=== PATIENT | female | born 1935 | race Caucasian/White ===

== ENCOUNTER 2016-09-17 11:22 | Emergency (ER) | payer MEDICARE, OTHER | END 2016-09-17 13:41 | disposition home or self-care (01) | LOC: D.ER 11:22 | DX: Z91.81 History of falling (principal); Z86.73 Personal history of transient ischemic attack (TIA), and cerebral infarction without residual deficits; G47.33 Obstructive sleep apnea (adult) (pediatric) ==

== ENCOUNTER 2016-10-14 00:32 | Emergency (ER) | payer MEDICARE, OTHER ==
[2016-10-14 01:32] LABS: APPEARANCE CLEAR (CLEAR); BILIRUBIN NEGATIVE (NEGATIVE); COLOR YELLOW (YELLOW); GLUCOSE NEGATIVE (NEGATIVE); KETONE NEGATIVE (NEGATIVE); LEUKOCYTE ESTERASE NEGATIVE (NEGATIVE); NITRITE NEGATIVE (NEGATIVE); PROTEIN NEGATIVE (NEGATIVE); UROBILINOGEN NORMAL (NORMAL)
[2016-10-14 01:33] LABS: BASOPHILS 0.2 % (0-2); EOSINOPHILS 1.5 % (0-7); HEMATOCRIT 39.4 % (36.0-48.0); HEMOGLOBIN 12.2 g/dL (12-16); IMMATURE GRANULOCYTES 0.2 % (0-5); LYMPHOCYTES 28.6 % (15-50); MCH 25.4 pg (26.0-34.0); MCV 81.9 fL (80.0-100.0); MEAN PLATELET VOLUME 9.2 fL (7.4-10.4); MONOCYTES 6.5 % (2-11); PLATELET COUNT 248 10x3/uL (130-400); RBC 4.81 10x6/uL (4.00-5.40); RDW 15.8 % (11.5-14.5); WBC 9.1 10x3/uL (4.8-10.8)
[2016-10-14 01:39] LABS: UDS - AMPHET NEGATIVE QUAL (NEGATIVE); UDS - BARB NEGATIVE QUAL (NEGATIVE); UDS - BENZO NEGATIVE QUAL (NEGATIVE); UDS - COCAINE NEGATIVE QUAL (NEGATIVE); UDS - METH NEGATIVE QUAL (NEGATIVE); UDS - OPIATE NEGATIVE QUAL (NEGATIVE); UDS - PCP NEGATIVE QUAL (NEGATIVE); UDS - THC NEGATIVE QUAL (NEGATIVE)
[2016-10-14 01:58] LABS: APTT 35.9 SECONDS (22.8-39.4); INR 1.73 (0.85-1.17); PROTIME 20.2 SECONDS (11.6-15.0)
[2016-10-14 02:00] LABS: ALBUMIN 3.2 g/dL (3.4-5.0); ANION GAP 5.2 mmol/L (8-16); BILIRUBIN - TOTAL 0.24 mg/dL (0.2-1.3); CALCIUM 8.6 mg/dL (8.5-10.1); CARBON DIOXIDE 36.3 mmol/L (21.0-32.0); CREATININE - SERUM 0.9 mg/dL (0.6-1.3); POTASSIUM - SERUM 3.5 mmol/L (3.5-5.1); PROTEIN - SERUM 7.6 g/dL (6.4-8.2)
== END 2016-10-14 03:05 | disposition home or self-care (01) ==
LOC: D.ER 00:32
PROVIDERS: Emergency Medicine
DX: G40.909 Epilepsy, unspecified, not intractable, without status epilepticus (principal); R09.02 Hypoxemia; R55 Syncope and collapse; I44.0 Atrioventricular block, first degree; I44.60 Unspecified fascicular block

== ENCOUNTER 2016-12-04 16:59 | Inpatient (IN) | payer MEDICARE, OTHER ==
[2016-12-04 18:21] LABS: BASOPHILS 0.1 % (0-2); EOSINOPHILS 0.1 % (0-7); HEMATOCRIT 42.7 % (36.0-48.0); HEMOGLOBIN 13.1 g/dL (12-16); IMMATURE GRANULOCYTES 0.3 % (0-5); LYMPHOCYTES 9.3 % (15-50); MCHC 30.7 g/dL (31.0-37.0); MCV 81.3 fL (80.0-100.0); MEAN PLATELET VOLUME 9.4 fL (7.4-10.4); MONOCYTES 5.5 % (2-11); NEUTROPHILS 84.7 % (40-80); PLATELET COUNT 271 10x3/uL (130-400); RBC 5.25 10x6/uL (4.00-5.40); RDW 15.8 % (11.5-14.5); WBC 17.1 10x3/uL (4.8-10.8)
[2016-12-04 18:34] LABS: APTT 31.3 SECONDS (22.8-39.4); INR 1.56 (0.85-1.17); PROTIME 18.6 SECONDS (11.6-15.0)
[2016-12-04 18:46] LABS: ALBUMIN 3.3 g/dL (3.4-5.0); ANION GAP 13.5 mmol/L (8-16); BILIRUBIN - TOTAL 0.25 mg/dL (0.2-1.3); CALCIUM 8.7 mg/dL (8.5-10.1); CARBON DIOXIDE 27.1 mmol/L (21.0-32.0); CREATININE - SERUM 0.9 mg/dL (0.6-1.3); POTASSIUM - SERUM 3.6 mmol/L (3.5-5.1); PROTEIN - SERUM 7.5 g/dL (6.4-8.2)
[2016-12-05] VITALS: BP 162/80
--- NOTE | 2016-12-05 01:37 | NUR ---
REC'D TO ROOM 2225 FROM ER DEPT PER STRETCHER A 81 Y/O W/FE PER SERVICES DR. HEBERT WITH DX GI BLEED/DIVERTICULITIS. NKDA. IV PATENT LEFT FOOT ANTIBIOTIC HANGING OF LEVAQUAN WILL BE HANGING NS AFTERWARDS TO RUN AT 125CC'S/HR. SPOUSE AT BEDSIDE. 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 SR UP X2 CALL LIGHT WITHIN REACH. BED ALARM BED SET.
--- NOTE | 2016-12-05 02:30 | NUR ---
EYES CLOSED RESPIRATIONS WITH EASE AND UNLABORED. SPOUSE SLEEPING IN CHAIR AT BEDSIDE.O2 ON AT 2L/M PER NC.NO DISTRESS.
[2016-12-05 03:07] VITALS: BP 136/71; BMI 26.6
[2016-12-05] MEDS ORDERED: METOPROLOL TART50 MG PO (03:38)
[2016-12-05] MEDS ORDERED: HYZAAR 100-12.51 TAB PO (03:39)
[2016-12-05] MEDS ORDERED: LOSARTAN POTASS25 MG PO (03:41)
[2016-12-05] MEDS ORDERED: KEPPRA750 MG PO (03:42)
[2016-12-05] MEDS ORDERED: LEXAPRO10 MG PO (03:43)
[2016-12-05] MEDS ORDERED: PRAVACHOL80 MG PO (03:43)
[2016-12-05] MEDS ORDERED: BACLOFEN10 MG PO (03:44)
[2016-12-05] MEDS ORDERED: COUMADIN3 MG PO ×2 (03:46→15:35)
[2016-12-05] MEDS ORDERED: OMEPRAZOLE20 M1 PO (03:47)
[2016-12-05] MEDS ORDERED: K-TAB10 MEQ PO (03:47)
[2016-12-05] MEDS ORDERED: HYDROCHLOROTH12.5 M1 PO (03:48)
--- NOTE | 2016-12-05 04:00 | NUR ---
INC URINE BRIEF CHANGED.
--- NOTE | 2016-12-05 05:12 | NUR ---
REPOSITIONED IN BED SR UP X2 CALL LIGHT WITHIN REACH BED ALARM RESET.
[2016-12-05 05:42] LABS: BASOPHILS 0.2 % (0-2); EOSINOPHILS 0.8 % (0-7); HEMATOCRIT 36.7 % (36.0-48.0); HEMOGLOBIN 11.7 g/dL (12-16); IMMATURE GRANULOCYTES 0.2 % (0-5); LYMPHOCYTES 20.7 % (15-50); MCH 25.4 pg (26.0-34.0); MCHC 31.9 g/dL (31.0-37.0); MCV 79.6 fL (80.0-100.0); MEAN PLATELET VOLUME 9.4 fL (7.4-10.4); MONOCYTES 8.3 % (2-11); NEUTROPHILS 69.8 % (40-80); PLATELET COUNT 273 10x3/uL (130-400); RBC 4.61 10x6/uL (4.00-5.40); RDW 15.7 % (11.5-14.5)
[2016-12-05 05:45] LABS: CALCIUM 8.2 mg/dL (8.5-10.1); CARBON DIOXIDE 28.8 mmol/L (21.0-32.0); CHLORIDE - SERUM 102 mmol/L (98-107); CREATININE - SERUM 0.7 mg/dL (0.6-1.3); GLUCOSE 114 mg/dL (74-106); SODIUM 139 mmol/L (136-145); eGFR NON AFRICAN AMERICAN 85 mL/min (90-120)
[2016-12-05 05:46] LABS: INR 1.64 (0.85-1.17); PROTIME 19.4 SECONDS (11.6-15.0)
[2016-12-05 06:00] LABS: WBC 10.1 10x3/uL (4.8-10.8)
[2016-12-05 06:10] LABS: CALC OSMOLALITY 279 mosm/kg (275-300); UREA NITROGEN 16 mg/dL (7-18)
--- NOTE | 2016-12-05 07:00 | NUR ---
PT REC'D FROM PERLA FENG. RESTING IN BED WITH AT BEDSIDE. PT IS MOVING AROUND AND PULLING AT BLANKETS AN SHEETS. APHASIC, BUT CAN ANSWER YES AND NO BY SHAKING HER HEAD. NO COMPLAINTS OF PAIN. REGULAR HEART RATE AND RHYTHM. LUNG SOUNDS CLEAR AND EQAUL BILAT. BOWEL SOUNDS ACTIVE X4 QUADS. R EXTREMITES FLACCID. +2 PEDAL PULSES BILAT. SKIN TO LOWER EXTREMITIES DRY. PIV TO L ANKLE FREE OF REDNESS AND SWELLING. SCD TO RLE APPLIED. BED LOW, CALL LIGHT IN REACH, DENIES NEEDS. CPOC.
[2016-12-05 08:52] VITALS: BP 131/45
[2016-12-05 10:09] LABS: MAGNESIUM - SERUM 2.2 mg/dL (1.8-2.4); PHOSPHOROUS 2.6 mg/dL (2.5-4.9)
[2016-12-05 12:06] VITALS: BP 151/53
--- NOTE | 2016-12-05 12:45 | NUR ---
16 WELSH WATTERS CATHETER PLACED AT THIS TIME USING STERILE TECHNIQUE. PT TOLERATED WELL. IMMEDATE RETURN OF 350CC'S OF CLEAR YELLOW URINE. SPECIMEN OBTAINED AND SENT TO LAB FOR UA. REPOSITIONED UP IN BED. BED LOW, CALL LIGHT IN REACH, DENIES NEEDS. CPOC.
--- NOTE | 2016-12-05 13:07 | NUR ---
RESTING QUEITLY IN BED AT THIS TIME. DENIES NEEDS. SPEECH IS SLURRED. LEFT LUNGS WITH CRACKLES AND WHEEZES THROUGHOUT, OCCASSIONAL PRODUCTIVE COUGH NOTED. WATTERS PATNET WITH DARK YELLOW URINE.
[2016-12-05 13:22] LABS: APPEARANCE CLEAR (CLEAR); BILIRUBIN NEGATIVE (NEGATIVE); COLOR STRAW (YELLOW); GLUCOSE NEGATIVE (NEGATIVE); KETONE NEGATIVE (NEGATIVE); NITRITE NEGATIVE (NEGATIVE); PROTEIN NEGATIVE (NEGATIVE); UROBILINOGEN NORMAL (NORMAL)
[2016-12-05 13:24] LABS: BACTERIA FEW /hpf (NONE SEEN); EPITHELIAL CELLS 0-5 /hpf (0-5); WHITE CELLS - URINE 0-5 /hpf (0-5)
[2016-12-05 14:30] LABS: HEMOGLOBIN 11.2 g/dL (12-16)
[2016-12-05 14:38] VITALS: BMI 26.6
[2016-12-05 16:23] VITALS: BP 179/71
[2016-12-05 20:00] VITALS: BP 163/61
[2016-12-05 21:45] LABS: HEMATOCRIT 38.3 % (36.0-48.0); HEMOGLOBIN 11.8 g/dL (12-16)
[2016-12-06 04:00] VITALS: BP 141/65
[2016-12-06 06:32] LABS: BASOPHILS 0.2 % (0-2); EOSINOPHILS 0.9 % (0-7); HEMATOCRIT 37.7 % (36.0-48.0); HEMOGLOBIN 11.7 g/dL (12-16); IMMATURE GRANULOCYTES 0.2 % (0-5); LYMPHOCYTES 24.5 % (15-50); MCH 24.6 pg (26.0-34.0); MCV 79.4 fL (80.0-100.0); MEAN PLATELET VOLUME 8.9 fL (7.4-10.4); MONOCYTES 10.3 % (2-11); NEUTROPHILS 63.9 % (40-80); PLATELET COUNT 277 10x3/uL (130-400); RBC 4.75 10x6/uL (4.00-5.40); RDW 15.8 % (11.5-14.5); WBC 8.8 10x3/uL (4.8-10.8)
[2016-12-06 07:05] LABS: ALBUMIN 2.6 g/dL (3.4-5.0); ANION GAP 11.9 mmol/L (8-16); BILIRUBIN - TOTAL 0.44 mg/dL (0.2-1.3); CARBON DIOXIDE 27.5 mmol/L (21.0-32.0); CREATININE - SERUM 0.8 mg/dL (0.6-1.3); POTASSIUM - SERUM 3.4 mmol/L (3.5-5.1); PROTEIN - SERUM 6.5 g/dL (6.4-8.2)
--- NOTE | 2016-12-06 08:30 | NUR ---
ASSESSMENT COMPLETE. IV TO L FOOT PATENT. NS INFUSING AT 50 CC/HR VIA PUMP. RUE AND RLE FLACCID. ONLY ANSWERING YES AND NO QUESTIONS. WATTERS PATENT DRAINING YELLOW URINE. O2 3L NC IN USE. BED ALARM IN USE. AT BEDSIDE.
[2016-12-06 09:18] VITALS: BP 157/59
--- NOTE | 2016-12-06 12:00 | NUR ---
RESTING QUIETLY IN BED. FAMILY AT BEDSIDE. NO CHANGES NOTED AT PRESENT.
[2016-12-06 12:32] VITALS: BP 105/52
--- NOTE | 2016-12-06 17:00 | NUR ---
NO CHANGES NOTED AT PRESENT.
[2016-12-06 17:28] VITALS: BP 149/66
[2016-12-06 20:00] VITALS: BP 149/65
--- NOTE | 2016-12-06 20:00 | NUR ---
ASSESSMENT PER FLOWSHEET. RT SIDE FLACCID SPEECH APHASIC. INCOMPREHENSIVE WORDS NOTED.WATTERS TO BS DRAINAGE IV PATENT LEFT FOOT OF NS AT 50CC'S/HR. O21 AT 3L/M PER NC.BED ALARM BED ACTIVATED.
--- NOTE | 2016-12-06 21:00 | NUR ---
MEDS GIVEN PER APR. SR UP X22 CALL LIGHT WITHIN REACH SPOUSE AT BEDSIDE.
[2016-12-07] VITALS: BP 135/56; BP 148/59
--- NOTE | 2016-12-07 | NUR ---
EYES CLOSED RESPIRATIONS WITH EASE AND UNLABORED.
--- NOTE | 2016-12-07 03:00 | NUR ---
RESTING QUIETLY TURNED IN BED
[2016-12-07 04:00] VITALS: BP 135/56
[2016-12-07 05:17] LABS: BASOPHILS 0.2 % (0-2); EOSINOPHILS 1.1 % (0-7); HEMATOCRIT 33.4 % (36.0-48.0); HEMOGLOBIN 10.4 g/dL (12-16); IMMATURE GRANULOCYTES 0.1 % (0-5); MCH 24.7 pg (26.0-34.0); MCHC 31.1 g/dL (31.0-37.0); MCV 79.3 fL (80.0-100.0); MEAN PLATELET VOLUME 9.1 fL (7.4-10.4); MONOCYTES 8.1 % (2-11); NEUTROPHILS 72.5 % (40-80); PLATELET COUNT 268 10x3/uL (130-400); RBC 4.21 10x6/uL (4.00-5.40); RDW 15.8 % (11.5-14.5); WBC 8.7 10x3/uL (4.8-10.8)
[2016-12-07 05:33] LABS: ALBUMIN 2.5 g/dL (3.4-5.0); ANION GAP 9.9 mmol/L (8-16); BILIRUBIN - TOTAL 0.38 mg/dL (0.2-1.3); CALCIUM 8.3 mg/dL (8.5-10.1); CARBON DIOXIDE 26.4 mmol/L (21.0-32.0); CREATININE - SERUM 0.8 mg/dL (0.6-1.3); POTASSIUM - SERUM 3.3 mmol/L (3.5-5.1); PROTEIN - SERUM 6.1 g/dL (6.4-8.2)
--- NOTE | 2016-12-07 06:00 | NUR ---
MEDS PER MAR. NO CHANGES IN ASSESSMENT. K+ LEVEL 3.5.k= RIDER #[id number] HUNG PER Jo DUENAS.
--- NOTE | 2016-12-07 07:20 | NUR ---
RESTING QUIETLY IN BED. AT BEDSIDE.
--- NOTE | 2016-12-07 08:35 | NUR ---
ASSESSMENT COMPLETE. IV TO L FOOT PATENT. NS INFUSING AT 50 CC/HR VIA PUMP. R SIDE FLACCID TO UPPER AND LOWER EXTREMITY. WATTERS PATENT DRAINING YELLOW URINE. BED ALARM IN USE. O2 3L NC IN USE. AT BEDSIDE.
[2016-12-07 08:55] VITALS: BP 157/63
[2016-12-07 10:07] LABS: INR 1.58 (0.85-1.17); PROTIME 18.8 SECONDS (11.6-15.0)
--- NOTE | 2016-12-07 10:20 | NUR ---
STOOL FOR OCCULT BLOOD SENT TO LAB.
[2016-12-07 11:29] VITALS: BP 138/69
--- NOTE | 2016-12-07 13:09 | NUR ---
Patient Name: GAB ALEXANDRE Admission Status: ER Accout number: [id number] Admission Date: 12-04-2016 : 1935 Admission Diagnosis:MELENA Attending: MAHNAZ MARQUEZ Current LOS: 3 Anticipated DC Date: 12-08-2016 Planned Disposition: Home Primary Insurance: MEDICARE A & B Discharge Planning Comments: CM MET WITH PATIENTS SPOUSE (SUZAN) REGARDING D/C NEEDS AND PLANS. 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 SPOUSE STATED PATIENT IS TOTALLY DEPENDENT WITH HER CARE. PATIENT IS IN A WHEELCHAIR AND GOES TO PHYSICAL THERAPY AT A LOCAL GYM. PATIENT HAS A WHEELCHAIR, WALKER, BS COMMODE, AND OXYGEN AT HOME. PATIENT USES O2 AT NIGHT AND ALSO HAS A PORTABLE PER SPOUSE. SPOUSE REFUSED HOME HEALTH. CM WILL CONTINUE TO FOLLOW PATIENT WITH D/C NEEDS AND PLANS. PCP DR[facility] [place] [phone] SUZAN (SPOUSE) [phone] Trip Follower: Jane Adame Is the patient Alert and Oriented? No 0 * How many steps to enter\exit or inside your home? 0 0 * PCP DR. HEBERT 0 * Pharmacy [facility] 0 * Preadmission Environment Home with Family 0 * ADLs Total Dependent 0 * Equipment Bedside Commode Oxygen Walker Wheelchair 0 * Other Equipment PORTABLE O2 0 * List name and contact numbers for known caregivers / representatives who currently or will assist patient after discharge: SUZAN (SPOUSE) [phone] 0 * Community resources currently utilized None 0 * Additional services required to return to the preadmission environment? Yes 0 * Can the patient safely return to the preadmission environment? Yes 0 * Has this patient been hospitalized within the prior 30 days at any hospital? No 0 Grand Total: 0
[2016-12-07] MEDS ORDERED: FLORAJEN3 CAPS460 MG PO (14:05)
[2016-12-07] MEDS ORDERED: LEVAQUIN500 MG PO (14:06)
[2016-12-07] MEDS ORDERED: FLAGYL500 MG PO (14:06)
--- NOTE | 2016-12-07 14:30 | NUR ---
CM REASSESSMENT NOTE: PATIENT IS DISCHARGING HOME TODAY. SPOUSE REFUSED HOME HEALTH AND HAD NO OTHER NEEDS FOR DISCHARGE. SPOUSE IS DRIVING PATIENT HOME. IMM SERVED
--- NOTE | 2016-12-07 15:00 | NUR ---
WATTERS CATHETER DC'D. CATHETER TIP INTACT. PATIENT REMOVED OWN IV. CATHETER TIP INTACT. NO BLEEDING NOTED FROM IV INSERTION SITE. DISCHARGE TEACHING GIVEN TO PATIENT AND . VOICED UNDERSTANDING.
--- NOTE | 2016-12-07 15:25 | NUR ---
DC'D HOME WITH . ESCORTED TO VEHICLE BY STARCHER AND TENTER RANGE FEEDER WITH BELONGINGS VIA PERSONAL WHEELCHAIR.
== END 2016-12-07 15:25 | disposition home or self-care (01) | DRG 391 ==
LOC: D.ER 16:59 → D.MS 23:44
PROVIDERS: Emergency Medicine; Family Medicine; ADMIT Family Medicine
DX: K57.92 Diverticulitis of intestine, part unspecified, without perforation or abscess without bleeding (principal); R53.2 Functional quadriplegia; I69.351 Hemiplegia and hemiparesis following cerebral infarction affecting right dominant side; D64.89 Other specified anemias; G47.33 Obstructive sleep apnea (adult) (pediatric); I69.398 Other sequelae of cerebral infarction; R56.9 Unspecified convulsions

== ENCOUNTER 2016-12-15 16:43 | Observation (INO) | payer MEDICARE, OTHER ==
[~2016-12-15 16:43] MED LIST: BACLOFEN10 MG PO; COUMADIN3 MG PO; FLAGYL500 MG PO; FLORAJEN3 CAPS460 MG PO; HYDROCHLOROTH12.5 M1 PO; HYZAAR 100-12.51 TAB PO; K-TAB10 MEQ PO; KEPPRA750 MG PO; LEVAQUIN500 MG PO; LEXAPRO10 MG PO; LOSARTAN POTASS25 MG PO; METOPROLOL TART50 MG PO; OMEPRAZOLE20 M1 PO; PRAVACHOL80 MG PO
[2016-12-15 18:15] LABS: BASOPHILS 0.2 % (0-2); EOSINOPHILS 2.1 % (0-7); HEMATOCRIT 37.7 % (36.0-48.0); HEMOGLOBIN 11.7 g/dL (12-16); IMMATURE GRANULOCYTES 0.1 % (0-5); LYMPHOCYTES 20.4 % (15-50); MCH 24.7 pg (26.0-34.0); MCV 79.7 fL (80.0-100.0); MEAN PLATELET VOLUME 9.1 fL (7.4-10.4); MONOCYTES 8.5 % (2-11); NEUTROPHILS 68.7 % (40-80); PLATELET COUNT 303 10x3/uL (130-400); RBC 4.73 10x6/uL (4.00-5.40); WBC 8.1 10x3/uL (4.8-10.8)
[2016-12-15 18:41] LABS: INR 1.82 (0.85-1.17); PROTIME 21.1 SECONDS (11.6-15.0)
[2016-12-15 18:43] LABS: ANION GAP 9.1 mmol/L (8-16); BILIRUBIN - TOTAL 0.22 mg/dL (0.2-1.3); CALCIUM 8.8 mg/dL (8.5-10.1); CARBON DIOXIDE 31.4 mmol/L (21.0-32.0); CREATININE - SERUM 0.9 mg/dL (0.6-1.3); POTASSIUM - SERUM 3.5 mmol/L (3.5-5.1)
[2016-12-15 20:39] LABS: APPEARANCE HAZY (CLEAR); BILIRUBIN NEGATIVE (NEGATIVE); COLOR DK YELLOW (YELLOW); GLUCOSE NEGATIVE (NEGATIVE); KETONE NEGATIVE (NEGATIVE); NITRITE POSITIVE (NEGATIVE); PROTEIN TRACE mg/dL (NEGATIVE); SPECIFIC GRAVITY 1.015 (1.005-1.020); UROBILINOGEN NORMAL (NORMAL)
[2016-12-15 20:40] LABS: BACTERIA MODERATE /hpf (NONE SEEN); RED CELLS - URINE 0-5 /hpf (0-5)
[2016-12-15] MEDS ORDERED: BAYER CHEWABLE81 MG PO (21:09)
--- NOTE | 2016-12-15 21:15 | NUR ---
PT ARRIVED TO ROOM. AT BEDSIDE. PT FLACCID ON RIGHT SIDE AND NON VERBAL. PT WILL POINT AND SHAKE HEAD YES AND NO FOR ANSWERING. PT HAS A WHEELCHAIR FROM HOME SHE BROUGHT WITH. PT. DENIES ANY NEEDS AT THIS TIME. NO S/S OF DISTRESS. IV TO LEFT HAND IS S/L. CDI. WILL CPOC
[2016-12-16] VITALS: BP 145/48
--- NOTE | 2016-12-16 00:05 | NUR ---
PT HAD A SMALL BM, FORMED, SOFT. CLEANED PT, PT REPOSITONED. BED LOW AND CALL LIGHT IN REACH. WILL CPOC
[2016-12-16 01:02] VITALS: BP 149/53; BMI 31.0
[2016-12-16 04:00] VITALS: BP 153/63
--- NOTE | 2016-12-16 04:54 | NUR ---
PT HAD A SMALL BM. SOFT AND FORMED. PT REPOSITIONED AND CLEANED. PT DENIES ANY NEEDS. NO S/S OF DISTRESS. WILL CPOC
[2016-12-16 05:46] LABS: BASOPHILS 0.3 % (0-2); EOSINOPHILS 1.4 % (0-7); HEMATOCRIT 34.2 % (36.0-48.0); HEMOGLOBIN 10.8 g/dL (12-16); IMMATURE GRANULOCYTES 0.1 % (0-5); LYMPHOCYTES 26.2 % (15-50); MCH 24.7 pg (26.0-34.0); MCHC 31.6 g/dL (31.0-37.0); MCV 78.1 fL (80.0-100.0); MEAN PLATELET VOLUME 9.2 fL (7.4-10.4); MONOCYTES 9.6 % (2-11); NEUTROPHILS 62.4 % (40-80); PLATELET COUNT 308 10x3/uL (130-400); RBC 4.38 10x6/uL (4.00-5.40); RDW 15.9 % (11.5-14.5); WBC 7.3 10x3/uL (4.8-10.8)
[2016-12-16 06:00] LABS: ANION GAP 11.7 mmol/L (8-16); CALCIUM 8.7 mg/dL (8.5-10.1); CARBON DIOXIDE 28.6 mmol/L (21.0-32.0); CREATININE - SERUM 0.8 mg/dL (0.6-1.3); POTASSIUM - SERUM 3.3 mmol/L (3.5-5.1)
--- NOTE | 2016-12-16 07:46 | NUR ---
PT PLACED ON BED DEGROOT, DENIES ANY OTHER NEEDS WILL CONT TO MONITOR
[2016-12-16 08:00] VITALS: BP 158/80
[2016-12-16 12:20] VITALS: BP 161/78
[2016-12-16 13:22] VITALS: BMI 30.9
[2016-12-16] MEDS ORDERED: COLACE100 MG PO (14:44)
[2016-12-16] MEDS ORDERED: MIRALAX17 GM PO (14:44)
--- NOTE | 2016-12-16 16:01 | NUR ---
WENT OVER DC PAPERWORK WITH PT AND PT . VERBALIZE UNDERSTANDING DC PIV WITH CATH TIP INTACT. HELPED GET PT DRESSED AND INTO HER OWN WHEELCHAIR. PT WAS WHEELED OUT BY REFERENCE INVESTIGATOR. DRIVING HER HOME.
== END 2016-12-16 16:06 | disposition home or self-care (01) ==
LOC: D.ER 16:43 → OBSVTIME 19:49 → D.M2 19:49
PROVIDERS: Family Medicine; ADMIT Family Medicine
DX: K59.00 Constipation, unspecified (principal); Z86.73 Personal history of transient ischemic attack (TIA), and cerebral infarction without residual deficits; G47.33 Obstructive sleep apnea (adult) (pediatric); R53.2 Functional quadriplegia; R56.9 Unspecified convulsions

== ENCOUNTER 2018-02-21 13:58 | Inpatient (IN) | payer MEDICARE, OTHER ==
[~2018-02-21] VITALS: Ht 162.6 cm; Wt 68.0 kg
--- NOTE | ~2018-02-21 | EC ---
PATIENT:GAB ALEXANDRE DATE OF SERVICE: 02/21/18 SEX: F MEDICAL RECORD: [id number] DATE OF : 39 LOCATION:D.M2 D.210 AGE OF PATIENT: 82 ADMISSION DATE: 02/21/18 REFERRING PHYSICIAN: INTERPRETING PHYSICIAN: GERALD CORDERO MD ECHOCARDIOGRAM REPORT ECHO CHARGES 4 ECHO COMPLETE Date: 02/25/18 CLINICAL DIAGNOSIS: AFIB ECHOCARDIOGRAPHIC MEASUREMENTS (adult normal given) AC root (d.<3.7cm) 2.7 cm LV Septum d (<1.2 cm> 1.3 cm Valve Excursion 0.9 cm LV Septum (systole) 1.5 cm Left Atria (s.<4.0cm> 4.6 cm LVPW d(<1.2cm) 1.0 cm RV (d.<2.3cm) 3.2 cm LVPW (sytole) 1.2 cm LV diastole(<5.6CM) 5.3 cm MV E-F(>70mm/sec) cm LV systole 4.7 cm LVOT Diameter 1.5 cm MV exc.(>10mm) cm Est.ejection fraction (50-75%) % DOPPLER: LVIT cm/sec A 82 cm/sec E 72 cm/sec LA cm/sec RVSP 20.1 mmHg LVOT 93 cm/sec AOP1/2T m/s Asc. Ao 127 cm/sec RVOT 56 cm/sec RA cm/sec PA 88 cm/sec AV Gradient Peak 6.4 mmHg AV Mean 4.3 mmHg AV Area 1.3 cm MV Gradient Peak 1.8 mmHg MV Mean 0.9 mmHg MV Area cm COMMENTS: Director Of Student Affairs: [facility] Emt Driver: 1 Dr. Cordero TAPE# PACS Pericardial Effusion N DATE OF SERVICE: 02/25/2018 FINDINGS: 1. Left ventricular chamber size is within normal limits. Left ventricular systolic function is normal. Overall ejection fraction is estimated at 60%. 2. Left atrium is enlarged at 4.6 cm. Right atrium and right ventricular chamber sizes are within normal limit. 3. Valvular structures have normal structure and motion. 4. Doppler interrogation only reveals trace tricuspid regurgitation. No other valvular insufficiency or stenosis. Pulmonary systolic pressure is normal, ECHOCARDIOGRAM REPORT [id number] GAB ALEXANDRE estimated at 20 mmHg. 5. No evidence of pericardial effusion or left ventricular thrombus. TRANSINT:[id number] Voice Confirmation ID: [id number] DOCUMENT ID: [id number] GERALD CORDERO MD CC: [id number] DICTATION DATE: 02/25/18 140 MULTIFOCAL BUTTON INSPECTOR: 02/25/18 181 ADM IN [facility] [address] [place] [id number]
[~2018-02-21 13:58] MED LIST changes: +BAYER CHEWABLE81 MG PO; +COLACE100 MG PO; +MIRALAX17 GM PO
[2018-02-21 15:38] LABS: BASOPHILS 0.1 % (0-2); EOSINOPHILS 0.7 % (0-7); HEMATOCRIT 38.7 % (36.0-48.0); HEMOGLOBIN 12.3 g/dL (12-16); IMMATURE GRANULOCYTES 0.2 % (0-5); MCH 24.6 pg (26.0-34.0); MCHC 31.8 g/dL (31.0-37.0); MCV 77.2 fL (80.0-100.0); MEAN PLATELET VOLUME 9.3 fL (7.4-10.4); MONOCYTES 7.5 % (2-11); NEUTROPHILS 71.5 % (40-80); PLATELET COUNT 289 10x3/uL (130-400); RBC 5.01 10x6/uL (4.00-5.40); RDW 15.1 % (11.5-14.5); WBC 12.1 10x3/uL (4.8-10.8)
[2018-02-21 15:48] LABS: INR 2.7 (0.85-1.17); PROTIME 27.9 SECONDS (11.6-15.0)
[2018-02-21 16:00] LABS: ALBUMIN 3.1 g/dL (3.4-5.0); ANION GAP 12.1 mmol/L (8-16); BILIRUBIN - TOTAL 0.53 mg/dL (0.2-1.3); CALCIUM 9.4 mg/dL (8.5-10.1); CARBON DIOXIDE 29.9 mmol/L (21.0-32.0); CREATININE - SERUM 1.9 mg/dL (0.6-1.3); PROTEIN - SERUM 7.5 g/dL (6.4-8.2)
[2018-02-21 16:04] LABS: APPEARANCE CLEAR (CLEAR); COLOR YELLOW (YELLOW); GLUCOSE NEGATIVE (NEGATIVE); KETONE NEGATIVE (NEGATIVE); NITRITE NEGATIVE (NEGATIVE); PROTEIN NEGATIVE (NEGATIVE)
[2018-02-21 16:05] LABS: BILIRUBIN NEGATIVE (NEGATIVE); UROBILINOGEN NORMAL (NORMAL)
[2018-02-21 16:32] LABS: UDS - AMPHET NEGATIVE QUAL (NEGATIVE); UDS - BARB NEGATIVE QUAL (NEGATIVE); UDS - BENZO NEGATIVE QUAL (NEGATIVE); UDS - COCAINE NEGATIVE QUAL (NEGATIVE); UDS - OPIATE NEGATIVE QUAL (NEGATIVE); UDS - PCP NEGATIVE QUAL (NEGATIVE); UDS - THC NEGATIVE QUAL (NEGATIVE)
--- NOTE | 2018-02-21 18:53 | MORECARE ---
CASE MANAGEMENT DISCHARGE SUMMARY PATIENT: GAB ALEXANDRE UNIT: [id number] ADM DATE: 02/21/18 AGE: 82 : 37 SEX: F ROOM/BED: D.2104 AUTHOR: MUMTAZ HURST PHYSICIAN: REFERRING PHYSICIAN: XANDER LEWIS MD DATE OF SERVICE: 02/21/18 Discharge Plan Patient Name: GAB ALEXANDRE [facility] [facility] 1935 Planned Disposition: Home Anticipated Discharge Date: 02/23/18 Discharge Date: Expected LOS: 2 Initial Reviewer: [email or web address] Initial Review Date: 02/21/2018 Generated: 02/21/18 7:52 pm DCPIA - Discharge Planning Initial Assessment Updated by [email or web address]: Michelle Reeves on 02/21/18 6:49 pm * Is the patient Alert and Oriented? No * How many steps to enter\exit or inside your home? None * PCP Dr. Garcia * Pharmacy [facility] [place] Patient Name: GAB ALEXANDRE Page [phone] at 1853 All edits/amendments must be made on the electronic document DICTATION DATE: 02/21/181851 BEAD MAKER: SHEILA 02/21/181851 RPT#: [id number] DC DATE: STATUS: ADM IN [facility] [address] [place] [address] END OF REPORT
--- NOTE | 2018-02-21 19:00 | MORECARE ---
CASE MANAGEMENT DISCHARGE SUMMARY PATIENT: GAB ALEXANDRE UNIT: [id number] ADM DATE: 02/21/18 AGE: 82 : 37 SEX: F ROOM/BED: D.2104 AUTHOR: MUMTAZ HURST PHYSICIAN: REFERRING PHYSICIAN: XANDER LEWIS MD DATE OF SERVICE: 02/21/18 Discharge Plan Patient Name: GAB ALEXANDRE Facility: [facility]:[place] : 1935 Planned Disposition: Home Anticipated Discharge Date: 02/23/18 Discharge Date: Expected LOS: 2 Initial Reviewer: [email or web address] Initial Review Date: 02/21/2018 Generated: 02/21/18 8:00 pm DCPIA - Discharge Planning Initial Assessment Updated by [email or web address]: Michelle Reeves on 02/21/18 6:54 pm * Is the patient Alert and Oriented? No * How many steps to enter\exit or inside your home? None * PCP Dr. Garcia * Pharmacy [facility] in [place] * Preadmission Environment Home with Family * ADLs Total Dependent * Equipment Oxygen Wheelchair * List name and contact numbers for known caregivers / representatives who currently or will assist patient after discharge: Dmitry Post - spouse/[facility] - [phone] * Verbal permission to speak to the caregivers and representatives has been obtained from the patient. Yes * Community resources currently utilized Other * Please name any agencies selected above. OP therapy @ [facility] on Tuesdays and . * Additional services required to return to the preadmission environment? No * Can the patient safely return to the preadmission environment? Yes * Has this patient been hospitalized within the prior 30 days at any hospital? No Last DP export: 02/21/18 5:52 Patient Name: GAB ALEXANDRE Page 65397 at 1900 All edits/amendments must be made on the electronic document DICTATION DATE: 02/21/181899 HOSE SEAMER: SHEILA 02/21/181899 RPT#: [id number] DC DATE: STATUS: ADM IN [facility] [address] [place] [address] END OF REPORT
--- NOTE | 2018-02-21 19:08 | MORECARE ---
CASE MANAGEMENT DISCHARGE SUMMARY PATIENT: GAB ALEXANDRE UNIT: [id number] ADM DATE: 02/21/18 AGE: 82 : 37 SEX: F ROOM/BED: D.2101 AUTHOR: ARIS,DOC PHYSICIAN: REFERRING PHYSICIAN: XANDER LEWIS MD DATE OF SERVICE: 02/21/18 Discharge Plan Patient Name: GAB ALEXANDRE Facility: [facility]:[place] : 1935 Planned Disposition: Home Anticipated Discharge Date: 02/23/18 Discharge Date: Expected LOS: 2 Initial Reviewer: [email or web address] Initial Review Date: 02/21/2018 Generated: 02/21/18 8:08 pm DCP- Discharge Planning Updated by [email or web address]: Michelle Reeves on 02/21/18 6:[address] Patient Name: GAB ALEXANDRE Admission Status: ER Accout number: [id number] Admission Date: 02-21-2018 : 1935 Admission Diagnosis: Attending: XANDER LEWIS Current LOS: 1 Anticipated DC Date: 02-23-2018 Planned Disposition: Home Primary Insurance: MEDICARE A & B Discharge Planning Comments: CM met with patient and her to complete initial dc planning assessment. CM educated patient and spouse on the CM role and verbal consent given by patient to complete assessment. Patient lives at home with her who is her primary caregiver and POA. He reports the patient is totally dependent upon him. She has a wheelchair that she uses and wears O2 @ HS. He takes her to [facility] on Tuesdays and for therapy. It takes three of them to ambulate her but she can ambulate 80 feet. At discharge he said it depends on how the patient is doing as to what she will need. He hopes she can return home with him and will continue to do outpatient therapy. CM will continue to follow and will assist as needed with dc plans/needs. Time Study Analyst: Michelle Reeves RN, [facility] DCPIA - Discharge Planning Initial Assessment Updated by [email or web address]: Michelle Reeves on 02/21/18 6:54 pm * Is the patient Alert and Oriented? No * How many steps to enter\exit or inside your home? None * PCP Dr. Garcia * [place] [facility] [place] * Preadmission Environment Home with Family * ADLs Total Dependent * Equipment Oxygen Wheelchair * List name and contact numbers for known caregivers / representatives who currently or will assist patient after discharge: Dmitry Post - spouse/POA [phone] * Verbal permission to speak to the caregivers and representatives has been obtained from the patient. Yes * Community resources currently utilized Other * Please name any agencies selected above. OP therapy @ [facility] on Tuesdays and . * Additional services required to return to the preadmission environment? No * Can the patient safely return to the preadmission environment? Yes * Has this patient been hospitalized within the prior 30 days at any hospital? No Last DP export: 02/21/18 6:00 Patient Name: GAB ALEXANDRE Page 11078 at 1908 All edits/amendments must be made on the electronic document DICTATION DATE: 02/21/181907 DIGITAL FORENSICS INVESTIGATOR: SHEILA 02/21/181907 RPT#: [id number] DC DATE: STATUS: ADM IN [facility] [address] [place] [address] END OF REPORT
[2018-02-21 20:00] VITALS: BP 148/67
[2018-02-22] VITALS (7 sets, daily range): BP systolic 124–149; BP diastolic 50–67; Ht 162.6 cm; Wt 68.0 kg
[2018-02-22 04:22] LABS: BASOPHILS 0.2 % (0-2); EOSINOPHILS 0.5 % (0-7); HEMOGLOBIN 11.3 g/dL (12-16); IMMATURE GRANULOCYTES 0.1 % (0-5); LYMPHOCYTES 24.7 % (15-50); MCH 24.5 pg (26.0-34.0); MCHC 31.4 g/dL (31.0-37.0); MCV 78.1 fL (80.0-100.0); MEAN PLATELET VOLUME 9.5 fL (7.4-10.4); MONOCYTES 11.2 % (2-11); NEUTROPHILS 63.3 % (40-80); PLATELET COUNT 273 10x3/uL (130-400); RBC 4.61 10x6/uL (4.00-5.40); RDW 15.4 % (11.5-14.5); WBC 9.6 10x3/uL (4.8-10.8)
[2018-02-22 04:33] LABS: INR 2.63 (0.85-1.17); PROTIME 27.3 SECONDS (11.6-15.0)
[2018-02-22 04:52] LABS: ALBUMIN 2.7 g/dL (3.4-5.0); ANION GAP 11.8 mmol/L (8-16); BILIRUBIN - TOTAL 0.45 mg/dL (0.2-1.3); CALCIUM 8.9 mg/dL (8.5-10.1); CARBON DIOXIDE 25.4 mmol/L (21.0-32.0); POTASSIUM - SERUM 3.2 mmol/L (3.5-5.1); PROTEIN - SERUM 6.5 g/dL (6.4-8.2)
[2018-02-22 04:53] LABS: CREATININE - SERUM 1.3 mg/dL (0.6-1.3)
[2018-02-23 04:00] VITALS: BP 138/56
[2018-02-23 05:38] LABS: BASOPHILS 0.1 % (0-2); EOSINOPHILS 1.2 % (0-7); HEMATOCRIT 34.5 % (36.0-48.0); IMMATURE GRANULOCYTES 0.2 % (0-5); LYMPHOCYTES 28.5 % (15-50); MCH 25.1 pg (26.0-34.0); MCHC 31.9 g/dL (31.0-37.0); MCV 78.8 fL (80.0-100.0); MEAN PLATELET VOLUME 9.3 fL (7.4-10.4); MONOCYTES 9.4 % (2-11); NEUTROPHILS 60.6 % (40-80); PLATELET COUNT 280 10x3/uL (130-400); RBC 4.38 10x6/uL (4.00-5.40); RDW 15.4 % (11.5-14.5); WBC 8.7 10x3/uL (4.8-10.8)
[2018-02-23 05:42] LABS: ALBUMIN 2.4 g/dL (3.4-5.0); ALKALINE PHOSPHATASE 67 U/L (46-116); ALT (SGPT) 17 U/L (10-68); BILIRUBIN - TOTAL 0.48 mg/dL (0.2-1.3); CALC OSMOLALITY 281 mosm/kg (275-300); CALCIUM 8.6 mg/dL (8.5-10.1); CARBON DIOXIDE 25.8 mmol/L (21.0-32.0); CHLORIDE - SERUM 107 mmol/L (98-107); CREATININE - SERUM 0.7 mg/dL (0.6-1.3); GLUCOSE 114 mg/dL (74-106); SODIUM 139 mmol/L (136-145); UREA NITROGEN 22 mg/dL (7-18); eGFR NON AFRICAN AMERICAN 85 mL/min (90-120)
[2018-02-23 05:43] LABS: INR 1.92 (0.85-1.17); POTASSIUM - SERUM 2.9 mmol/L (3.5-5.1); PROTIME 21.3 SECONDS (11.6-15.0)
[2018-02-23 10:19] VITALS: BP 144/80
[2018-02-23 17:31] VITALS: BP 130/75
[2018-02-23 21:08] VITALS: BP 139/77
[2018-02-24] VITALS (8 sets, daily range): BP systolic 120–146; BP diastolic 55–78
[2018-02-24 05:27] LABS: BASOPHILS 0.2 % (0-2); EOSINOPHILS 2.1 % (0-7); HEMATOCRIT 36.7 % (36.0-48.0); HEMOGLOBIN 11.5 g/dL (12-16); IMMATURE GRANULOCYTES 0.2 % (0-5); LYMPHOCYTES 32.2 % (15-50); MCH 24.7 pg (26.0-34.0); MCHC 31.3 g/dL (31.0-37.0); MCV 78.9 fL (80.0-100.0); MEAN PLATELET VOLUME 9.3 fL (7.4-10.4); MONOCYTES 9.9 % (2-11); NEUTROPHILS 55.4 % (40-80); PLATELET COUNT 281 10x3/uL (130-400); RBC 4.65 10x6/uL (4.00-5.40); RDW 16.1 % (11.5-14.5); WBC 9.5 10x3/uL (4.8-10.8)
[2018-02-24 05:44] LABS: INR 1.43 (0.85-1.17); PROTIME 16.9 SECONDS (11.6-15.0)
[2018-02-24 05:50] LABS: ALBUMIN 2.6 g/dL (3.4-5.0); ANION GAP 12.9 mmol/L (8-16); BILIRUBIN - TOTAL 0.47 mg/dL (0.2-1.3); CALCIUM 8.7 mg/dL (8.5-10.1); CARBON DIOXIDE 26.5 mmol/L (21.0-32.0); CREATININE - SERUM 0.8 mg/dL (0.6-1.3); POTASSIUM - SERUM 3.4 mmol/L (3.5-5.1); PROTEIN - SERUM 6.3 g/dL (6.4-8.2)
[2018-02-25 03:45] VITALS: BP 144/47
[2018-02-25 05:59] LABS: INR 1.26 (0.85-1.17); PROTIME 15.3 SECONDS (11.6-15.0)
[2018-02-25 06:01] LABS: ALBUMIN 2.5 g/dL (3.4-5.0); ANION GAP 13.7 mmol/L (8-16); BASOPHILS 0.2 % (0-2); BILIRUBIN - TOTAL 0.5 mg/dL (0.2-1.3); CALCIUM 8.4 mg/dL (8.5-10.1); CARBON DIOXIDE 25.7 mmol/L (21.0-32.0); CREATININE - SERUM 0.9 mg/dL (0.6-1.3); EOSINOPHILS 2.4 % (0-7); HEMATOCRIT 36.1 % (36.0-48.0); HEMOGLOBIN 11.2 g/dL (12-16); IMMATURE GRANULOCYTES 0.2 % (0-5); LYMPHOCYTES 28.8 % (15-50); MCH 24.4 pg (26.0-34.0); MCV 78.6 fL (80.0-100.0); MEAN PLATELET VOLUME 9.6 fL (7.4-10.4); MONOCYTES 7.6 % (2-11); NEUTROPHILS 60.8 % (40-80); PLATELET COUNT 282 10x3/uL (130-400); POTASSIUM - SERUM 3.4 mmol/L (3.5-5.1); PROTEIN - SERUM 6.4 g/dL (6.4-8.2); RBC 4.59 10x6/uL (4.00-5.40); RDW 16.2 % (11.5-14.5); WBC 9.2 10x3/uL (4.8-10.8)
[2018-02-25 08:13] VITALS: BP 149/81
[2018-02-25 11:23] VITALS: BP 103/48
--- NOTE | 2018-02-25 13:37 | MORECARE ---
CASE MANAGEMENT DISCHARGE SUMMARY PATIENT: GAB ALEXANDRE UNIT: [id number] ADM DATE: 02/21/18 AGE: 82 : 37 SEX: F ROOM/BED: D.2102 AUTHOR: ARIS,DOC PHYSICIAN: REFERRING PHYSICIAN: XANDER LEWIS MD DATE OF SERVICE: 02/25/18 Discharge Plan Patient Name: GAB ALEXANDRE Facility: [facility]:[place] : 1935 Planned Disposition: Home Anticipated Discharge Date: 02/25/18 Discharge Date: Expected LOS: 4 Initial Reviewer: [email or web address] Initial Review Date: 02/21/2018 Generated: 02/25/18 2:36 pm DCP- Discharge Planning Updated by [email or web address]: Michelle Reeves on 02/21/18 6:[address] Patient Name: GAB ALEXANDRE Admission Status: ER Accout number: [id number] Admission Date: 02-21-2018 : 1935 Admission Diagnosis: Attending: XANDER LEWIS Current LOS: 1 Anticipated DC Date: 02-23-2018 Planned Disposition: Home Primary Insurance: MEDICARE A & B Discharge Planning Comments: CM met with patient and her to complete initial dc planning assessment. CM educated patient and spouse on the CM role and verbal consent given by patient to complete assessment. Patient lives at home with her who is her primary caregiver and POA. He reports the patient is totally dependent upon him. She has a wheelchair that she uses and wears O2 @ HS. He takes her to Sports Medicine on Tuesdays and for therapy. It takes three of them to ambulate her but she can ambulate 80 feet. At discharge he said it depends on how the patient is doing as to what she will need. He hopes she can return home with him and will continue to do outpatient therapy. CM will continue to follow and will assist as needed with dc plans/needs. Africana Studies Professor: Michelle Reeves RN, [facility] DCPIA - Discharge Planning Initial Assessment Updated by [id number]: Michelle Reeves on 02/21/18 6:54 pm * Is the patient Alert and Oriented? No * How many steps to enter\exit or inside your home? None * PCP Dr. Garcia * Pharmacy [facility] [place] * Preadmission Environment Home with Family * ADLs Total Dependent * Equipment Oxygen Wheelchair * List name and contact numbers for known caregivers / representatives who currently or will assist patient after discharge: Suzan Post - spouse/[facility] - [phone] * Verbal permission to speak to the caregivers and representatives has been obtained from the patient. Yes * Community resources currently utilized Other * Please name any agencies selected above. OP therapy @ [facility] on Tuesdays and . * Additional services required to return to the preadmission environment? No * Can the patient safely return to the preadmission environment? Yes * Has this patient been hospitalized within the prior 30 days at any hospital? No Coverage Notice Reviewer: [id number] Burton Tamayo Notice Issued Date-Time: 02/25/2018 13:15 Notice Type: IM Discharge Notice Notice Delivered To: Family Member Relationship to Patient: Spouse Registered Nurse Surgical Services Name: SUZAN ALEXANDRE Delivery Method: HAND - Hand Delivered Beth Days: Prior Verbal Notification: Recipient Understood Notice: Yes Recipient Signature: Yes Med Rec Note Co-signed by Attending: Coverage Notice Comment: Last DP export: 02/21/18 6:08 Patient Name: GAB ALEXANDRE Page [phone] at 1337 All edits/amendments must be made on the electronic document DICTATION DATE: 02/25/181335 RELIEF COOK: SHEILA 02/25/181335 RPT#: [id number] DC DATE: STATUS: ADM IN [facility] [address] [place] [address] END OF REPORT
--- NOTE | 2018-02-25 13:52 | MORECARE ---
CASE MANAGEMENT DISCHARGE SUMMARY PATIENT: GAB ALEXANDRE UNIT: [id number] ADM DATE: 02/21/18 AGE: 82 : 37 SEX: F ROOM/BED: D.2102 AUTHOR: ARIS,DOC PHYSICIAN: REFERRING PHYSICIAN: XANDER LEWIS MD DATE OF SERVICE: 02/25/18 Discharge Plan Patient Name: GAB ALEXANDRE Facility: [facility]:[place] : 1935 Planned Disposition: Home Anticipated Discharge Date: 02/25/18 Discharge Date: Expected LOS: 4 Initial Reviewer: [email or web address] Initial Review Date: 02/21/2018 Generated: 02/25/18 2:52 pm Comments DCP- Discharge Planning Updated by [email or web address]: Nicola Fontenot on 02/25/18 12:[address] Patient Name: GAB ALEXANDRE Encounter No: [id number] : 1935 Primary Insurance: MEDICARE A & B Anticipated DC Date: 02-25-2018 Planned Disposition: Home DCP follow-up note: CM RECEIVED ORDER FOR INPATIENT REHAB PRESCREENING. CM SPOKE TO PT AND SPOUSE IN ROOM. PT IS LIMITED TO YES AND NO ANSWERS. PT'S SPOUSE REPORTS SINCE PT'S STROKE 6 YEARS AGO, HE IS HER VOICE AND TAKES CARE OF PT AT HOME. CM DISCUSSED AVAILABILTY OF INPATIENT AND SENIOR LIVING REHAB SERVICES. PT'S SPOUSE DECLINES BOTH. SPOUSE REPORTS THAT HE PICKS UP PT AND TRANSFERS PT FROM BED TO WHEELCHAIR TO TOILET AND BACK TO CHAIR UP TO 30 TIMES PER DAY. SPOUSE REPORTS PT TO BE AT HER PRIOR LEVEL OF FUCTIONING PRIOR TO GETTING SICK THIS TIME. CM DISCUSSSED AVAILABILITY OF HOME HEALTH AND MEDICAL EQUIPMENT. PT DECLINES HOME HEALTH REPORTING HE ALREADY TAKES PT TO THE [facility] IN [place] TWICE PER WEEK AND SHE GETS MAXIMUM AMOUNT OF PHYSICAL THERAPY THAT MEDICARE WILL PAY FOR. SPOUSE REPORTS HE HAS EVERYTHING THAT HE NEEDS TO CARE FOR HIS AT HOME AND WILL CONTINUE TO DO SO. CM INFORMED SPOUSE THAT HIS DAUGHTER CALLED AND WAS CONCERNED ABOUT HIM DRIVING. SPOUSE STATES THAT IS HIS STEP DAUGHTER AND HE IS OK TO DRIVE SINCE GETTING HIS DIABETES MEDICATIONS FROM THE PHARMACY AND PLANS TO DRIVE PT HOME AT DISCHARGE. IMPORTANT MESSAGE FROM MEDICARE PROVIDED AND EXPLAINED. PT'S SPOUSE DECLINED INPATIENT AND SENIOR LIVING REHAB WELL HOME HEALTH SERVICES. SPOUSE PLANS TO TAKE PT HOME AND CONTINUE OUTPATIENT THERAPY AT [facility] IN [place]. SPOUSE REPORTS ABILITY TO CARE FOR PT AND THAT SHE IS ALEADY AT HER PRIOR LEVEL OF FUNCTIONING. SPOUSE TO TRANSPORT HOME AT DISCHARGE. NICOLA FONTENOT, CASE MANAGEMENT DCP- Discharge Planning Updated by [id number]: Michelle Reeves on 02/21/18 6:[address] Patient Name: GAB ALEXANDRE Admission Status: ER Accout number: [id number] Admission Date: 02-21-2018 : 1935 Admission Diagnosis: Attending: XANDER LEWIS Current LOS: 1 Anticipated DC Date: 02-23-2018 Planned Disposition: Home Primary Insurance: MEDICARE A & B Discharge Planning Comments: CM met with patient and her to complete initial dc planning assessment. CM educated patient and spouse on the CM role and verbal consent given by patient to complete assessment. Patient lives at home with her who is her primary caregiver and POA. He reports the patient is totally dependent upon him. She has a wheelchair that she uses and wears O2 @ HS. He takes her to [facility] on Tuesdays and for therapy. It takes three of them to ambulate her but she can ambulate 80 feet. At discharge he said it depends on how the patient is doing as to what she will need. He hopes she can return home with him and will continue to do outpatient therapy. CM will continue to follow and will assist as needed with dc plans/needs. Monument Letterer: Michelle Reeves RN, [facility] DCPIA - Discharge Planning Initial Assessment Updated by [email or web address]: Michelle Reeves on 02/21/18 6:54 pm * Is the patient Alert and Oriented? No * How many steps to enter\exit or inside your home? None * PCP Dr. Garcia * Pharmacy [facility] in [place] * Preadmission Environment Home with Family * ADLs Total Dependent * Equipment Oxygen Wheelchair * List name and contact numbers for known caregivers / representatives who currently or will assist patient after discharge: Dmitry Post - spouse/POA - [phone] * Verbal permission to speak to the caregivers and representatives has been obtained from the patient. Yes * Community resources currently utilized Other * Please name any agencies selected above. OP therapy @ [facility] on Tuesdays and . * Additional services required to return to the preadmission environment? No * Can the patient safely return to the preadmission environment? Yes * Has this patient been hospitalized within the prior 30 days at any hospital? No Coverage Notice Reviewer: [id number] Burton Fontenot Notice Issued Date-Time: 02/25/2018 13:15 Notice Type: IM Discharge Notice Notice Delivered To: Family Member Relationship to Patient: Spouse Waste Cotton Cleaner Name: DMITRY ALEXANDRE Delivery Method: HAND - Hand Delivered Beth Days: Prior Verbal Notification: Recipient Understood Notice: Yes Recipient Signature: Yes Med Rec Note Co-signed by Attending: Coverage Notice Comment: Last DP export: 02/25/18 12:37 Patient Name: GAB ALEXANDRE Page [phone] at 1352 All edits/amendments must be made on the electronic document DICTATION DATE: 02/25/18 1352 WEB UI DEVELOPER: SHEILA 02/25/18 1352 RPT#: [id number] [place] DATE: STATUS: ADM IN [facility] [address] [place] [address] END OF REPORT
--- NOTE | 2018-02-25 14:36 | CN ---
PATIENT NAME:GAB ALEXANDRE MEDICAL RECORD: [id number] : 39 LOCATION:D. D.2104 ADMIT DATE: 02/21/18 ACCOUNT: [id number] CONSULTING PHYSICIAN: GERALD RACHEL MD REFERRING PHYSICIAN: XANDER LEWIS MD DATE OF CONSULTATION: 02/24/2018 DIAGNOSES: 1. Paroxysmal atrial fibrillation. 2. Hypertension. 3. Hyperlipidemia. 4. Shortness of breath, dyspnea on exertion. HISTORY: Mrs. Alexandre presents with generalized lethargy and mental status changes. This is resolving with antibiotic therapy; however, she has paroxysms of atrial fibrillation. She has no cardiac history. She was placed on metoprolol. Her rate is controlled in the 90s; however, she is still in and out of atrial fibrillation. She is on Coumadin as well. PHYSICAL EXAMINATION: GENERAL APPEARANCE: Well-nourished, well-developed, appears stated age. Level of distress, comfortable. PSYCHIATRIC: Mental status, alert, normal affect. Orientation, oriented to time, place and person. EYES: Lids and conjunctiva, noninjected. No discharge, no pallor. ENT: Lips, teeth, gums, normal dentition. Oropharynx, no cyanosis, no pallor. NECK: Carotid arteries, bilateral normal upstroke, no bruits, no thrills. JUGULAR VEINS: No jugular venous pressure or distention. CERVICAL LYMPH NODES: Nontender, nonenlarged. THYROID: Not enlarged. Nontender. No nodules. LUNGS: Respiratory effort, unlabored. CHEST: Normal curvature. No thoracic deformity. No chest wall tenderness. Percussion, resonant. Auscultation, clear. No wheezes, no rales, no rhonchi. CARDIOVASCULAR: Precordial exam, nondisplaced. No heaves or pericardial thrills. Rate and rhythm, regular. Heart sounds, normal S1, normal S2. No S3, no gallop, no rub. Systolic murmur, not heard. Diastolic murmur, not heard. EXTREMITIES: No cyanosis, no edema. Peripheral pulses, full and equal in all extremities, except as noted. No bruits appreciated. ABDOMEN: Soft, nondistended. Normal aorta. No bruit. Nontender. No masses. Liver, nontender, no hepatomegaly. Spleen, nontender, no splenomegaly. MUSCULOSKELETAL: No joint tenderness. No joint swelling. No erythema. NEUROLOGICAL: Normal gait, normal strength, normal tone. SKIN: Warm and dry. OVERALL IMPRESSION: Paroxysmal atrial fibrillation. We will discontinue the metoprolol and put her on sotalol. Get an echocardiogram. TRANSINT:[id number] Voice Confirmation ID: [id number] DOCUMENT ID: [id number] CONSULT REPORT [id number] GAB ALEXANDRE, GERALD ZEPEDA at 1436 CC: [id number] DICTATION DATE: 02/24/18 1236 EMS DIRECTOR: 02/24/18 [address] [facility] [address] [id number]
--- NOTE | 2018-02-25 15:15 | MORECARE ---
CASE MANAGEMENT DISCHARGE SUMMARY PATIENT: GAB ALEXANDRE UNIT: [id number] ADM DATE: 02/21/18 AGE: 82 : 37 SEX: F ROOM/BED: D.2104 AUTHOR: ARIS,DOC PHYSICIAN: REFERRING PHYSICIAN: XANDER LEWIS MD DATE OF SERVICE: 02/25/18 Discharge Plan Patient Name: GAB ALEXANDRE [facility] [facility] 1935 Planned Disposition: Inpatient Rehab Anticipated Discharge Date: 02/25/18 Discharge Date: Expected LOS: 4 Initial Reviewer: [email or web address] Initial Review Date: 02/21/2018 Generated: 02/25/18 4:15 pm Comments DCP- Discharge Planning Updated by [email or web address]: Nicola Fontenot on 02/25/18 2:[address] Patient Name: GAB ALEXANDRE Encounter No: [id number] : 1935 Primary Insurance: MEDICARE A & B Anticipated DC Date: 02-25-2018 Planned Disposition: Inpatient Rehab External Planned Provider: [facility] INPATIENT REHAB DCP follow-up note: CM WAS CALLED TO PT'S ROOM BY PT'S SPOUSE. PT'S SPOUSE REPORTS HE HAS TALKED TO A PERSONAL FRIEND AND HE WOULD LIKE PT TO BE CONSIDERED FOR INPATIENT REHAB AT [facility]. HE IS AWARE THAT PT WILL NEED TO PARTICIPATE IN THRE HOURS OF PROGRESSIVE THERAPY PER DAY AND STATES THAT PT IS ABLE TO WALK AND PARTICIPATE IN THREE HOURS OF THERAPY PER DAY; HE STATES THAT PT WAS WALKING 80 FEET TWICE PER WEEK AT THE [facility]PATIENT [facility] IN [place]. PT'S SPOUSE IS ALSO AWARE THAT HE IS NOT GOING TO BE ABLE TO STAY WITH THE PT IN THE INPATIENT REHAB UNIT. CM CALLED AND NOTIFIED YESSY WHO INFORMED CM THAT INPATIENT REHAB WILL WATCH PT'S PROGRESSION FOR INPATIENT REHAB CONSIDERATION. CM WAITING COMPLETION OF INPATIENT REHAB PRESCREEN BY [facility]. PT'S SPOUSE UNDERSTANDS THAT PT WILL NEED TO DEMONSTRATE ABILITY TO AMBULATE AND ABILITY TO TOLERATE THREE HOURS OF PROGRESSIVE THERAPY PER DAY. Nicola Fontenot CASE MANAGEMENT DCP- Discharge Planning Updated by [email or web address]: Nicola Fontenot on 02/25/18 12:[address] Patient Name: GAB ALEXANDRE Encounter No: [id number] : 1935 Primary Insurance: MEDICARE A & B Anticipated DC Date: 02-25-2018 Planned Disposition: Home DCP follow-up note: CM RECEIVED ORDER FOR INPATIENT REHAB PRESCREENING. CM SPOKE TO PT AND SPOUSE IN ROOM. PT IS LIMITED TO YES AND NO ANSWERS. PT'S SPOUSE REPORTS SINCE PT'S STROKE 6 YEARS AGO, HE IS HER VOICE AND TAKES CARE OF PT AT HOME. CM DISCUSSED AVAILABILTY OF INPATIENT AND [facility] REHAB SERVICES. PT'S SPOUSE DECLINES BOTH. SPOUSE REPORTS THAT HE PICKS UP PT AND TRANSFERS PT FROM BED TO WHEELCHAIR TO TOILET AND BACK TO CHAIR UP TO 30 TIMES PER DAY. SPOUSE REPORTS PT TO BE AT HER PRIOR LEVEL OF FUCTIONING PRIOR TO GETTING SICK THIS TIME. CM DISCUSSSED AVAILABILITY OF HOME HEALTH AND MEDICAL EQUIPMENT. PT DECLINES HOME HEALTH REPORTING HE ALREADY TAKES PT TO THE [facility] IN [place] TWICE PER WEEK AND SHE GETS MAXIMUM AMOUNT OF PHYSICAL THERAPY THAT MEDICARE WILL PAY FOR. SPOUSE REPORTS HE HAS EVERYTHING THAT HE NEEDS TO CARE FOR HIS AT HOME AND WILL CONTINUE TO DO SO. CM INFORMED SPOUSE THAT HIS DAUGHTER CALLED AND WAS CONCERNED ABOUT HIM DRIVING. SPOUSE STATES THAT IS HIS STEP DAUGHTER AND HE IS OK TO DRIVE SINCE GETTING HIS DIABETES MEDICATIONS FROM THE PHARMACY AND PLANS TO DRIVE PT HOME AT DISCHARGE. IMPORTANT MESSAGE FROM MEDICARE PROVIDED AND EXPLAINED. PT'S SPOUSE DECLINED INPATIENT AND [facility] RE[facility]. SPOUSE PLANS TO TAKE PT HOME AND CONTINUE OUTPATIENT THERAPY AT [facility] IN [place]. SPOUSE REPORTS ABILITY TO CARE FOR PT AND THAT SHE IS ALEADY AT HER PRIOR LEVEL OF FUNCTIONING. SPOUSE TO TRANSPORT HOME AT DISCHARGE. NICOLA FONTENOT, CASE MANAGEMENT DCP- Discharge Planning Updated by [id number]: Michelle Reeves on 02/21/18 6:[address] Patient Name: GAB ALEXANDRE Admission Status: ER Accout number: [id number] Admission Date: 02-21-2018 : 1935 Admission Diagnosis: Attending: XANDER LEWIS Current LOS: 1 Anticipated DC Date: 02-23-2018 Planned Disposition: Home Primary Insurance: MEDICARE A & B Discharge Planning Comments: CM met with patient and her to complete initial dc planning assessment. CM educated patient and spouse on the CM role and verbal consent given by patient to complete assessment. Patient lives at home with her who is her primary caregiver and POA. He reports the patient is totally dependent upon him. She has a wheelchair that she uses and wears O2 @ HS. He takes her to [facility] on Tuesdays and for therapy. It takes three of them to ambulate her but she can ambulate 80 feet. At discharge he said it depends on how the patient is doing as to what she will need. He hopes she can return home with him and will continue to do outpatient therapy. CM will continue to follow and will assist as needed with dc plans/needs. Box Press Operator: Michelle Reeves RN, [facility] DCPIA - Discharge Planning Initial Assessment Updated by [id number]: Michelle Reeves on 02/21/18 6:54 pm * Is the patient Alert and Oriented? No * How many steps to enter\exit or inside your home? None * PCP Dr. Garcia * Pharmacy [facility] in [place] * Preadmission Environment Home with Family * ADLs Total Dependent * Equipment Oxygen Wheelchair * List name and contact numbers for known caregivers / representatives who currently or will assist patient after discharge: Dmtiry Post - spouse/POA - [phone] * Verbal permission to speak to the caregivers and representatives has been obtained from the patient. Yes * Community resources currently utilized Other * Please name any agencies selected above. OP therapy @ [facility] on Tuesdays and . * Additional services required to return to the preadmission environment? No * Can the patient safely return to the preadmission environment? Yes * Has this patient been hospitalized within the prior 30 days at any hospital? No Coverage Notice Reviewer: [id number] - Nicola Fontenot Notice Issued Date-Time: 02/25/2018 13:15 Notice Type: IM Discharge Notice Notice Delivered To: Family Member Relationship to Patient: Spouse Professor Of Industrial Technology Name: DMITRY ALEXANDRE Delivery Method: HAND - Hand Delivered Beth Days: Prior Verbal Notification: Recipient Understood Notice: Yes Recipient Signature: Yes Med Rec Note Co-signed by Attending: Coverage Notice Comment: Last DP export: 02/25/18 12:52 Patient Name: GAB ALEXANDRE Page [id number] at 1514 All edits/amendments must be made on the electronic document DICTATION DATE: 02/25/18 8556 BARREL LATHE OPERATOR: DM 02/25/181514 RPT#: [id number] DC DATE: STATUS: ADM IN [facility] [address] [place] [address] END OF REPORT
--- NOTE | 2018-02-25 15:35 | MORECARE ---
CASE MANAGEMENT DISCHARGE SUMMARY PATIENT: GAB ALEXANDRE UNIT: [id number] ADM DATE: 02/21/18 AGE: 82 : 37 SEX: F ROOM/BED: D.2104 AUTHOR: ARIS,DOC PHYSICIAN: REFERRING PHYSICIAN: XANDER LEWIS MD DATE OF SERVICE: 02/25/18 Discharge Plan Patient Name: GAB ALEXANDRE [facility] [facility] 1935 Planned Disposition: Inpatient Rehab Anticipated Discharge Date: 02/26/18 Discharge Date: Expected LOS: 5 Initial Reviewer: [id number] Initial Review Date: 02/21/2018 Generated: 02/25/18 4:35 pm Comments DCP- Discharge Planning Updated by [email or web address]: Nicola Fontenot on 02/25/18 2:[address] Patient Name: GAB ALEXANDRE Encounter No: [id number] : 1935 Primary Insurance: MEDICARE A & B Anticipated DC Date: 02-25-2018 Planned Disposition: Inpatient Rehab External Planned Provider: [facility] INPATIENT REHAB DCP follow-up note: CM WAS CALLED TO PT'S ROOM BY PT'S SPOUSE. PT'S SPOUSE REPORTS HE HAS TALKED TO A PERSONAL FRIEND AND HE WOULD LIKE PT TO BE CONSIDERED FOR INPATIENT REHAB AT [facility]. HE IS AWARE THAT PT WILL NEED TO PARTICIPATE IN THRE HOURS OF PROGRESSIVE THERAPY PER DAY AND STATES THAT PT IS ABLE TO WALK AND PARTICIPATE IN THREE HOURS OF THERAPY PER DAY; HE STATES THAT PT WAS WALKING 80 FEET TWICE PER WEEK AT THE [facility]PATIENT [facility] IN [place]. PT'S SPOUSE IS ALSO AWARE THAT HE IS NOT GOING TO BE ABLE TO STAY WITH THE PT IN THE INPATIENT REHAB UNIT. CM CALLED AND NOTIFIED YESSY WHO INFORMED CM THAT INPATIENT REHAB WILL WATCH PT'S PROGRESSION FOR INPATIENT REHAB CONSIDERATION. CM WAITING COMPLETION OF INPATIENT REHAB PRESCREEN BY [facility]. PT'S SPOUSE UNDERSTANDS THAT PT WILL NEED TO DEMONSTRATE ABILITY TO AMBULATE AND ABILITY TO TOLERATE THREE HOURS OF PROGRESSIVE THERAPY PER DAY. Nicola Fontenot CASE JESUS DCP- Discharge Planning Updated by [id number]: Nicola Fontenot on 02/25/18 12:[address] Patient Name: GAB ALEXANDRE Encounter No: [id number] : 1935 Primary Insurance: MEDICARE A & B Anticipated DC Date: 02-25-2018 Planned Disposition: Home DCP follow-up note: CM RECEIVED ORDER FOR INPATIENT REHAB PRESCREENING. CM SPOKE TO PT AND SPOUSE IN ROOM. PT IS LIMITED TO YES AND NO ANSWERS. PT'S SPOUSE REPORTS SINCE PT'S STROKE 6 YEARS AGO, HE IS HER VOICE AND TAKES CARE OF PT AT HOME. CM DISCUSSED AVAILABILTY OF INPATIENT AND [facility] REHAB SERVICES. PT'S SPOUSE DECLINES BOTH. SPOUSE REPORTS THAT HE PICKS UP PT AND TRANSFERS PT FROM BED TO WHEELCHAIR TO TOILET AND BACK TO CHAIR UP TO 30 TIMES PER DAY. SPOUSE REPORTS PT TO BE AT HER PRIOR LEVEL OF FUCTIONING PRIOR TO GETTING SICK THIS TIME. CM DISCUSSSED AVAILABILITY OF HOME HEALTH AND MEDICAL EQUIPMENT. PT DECLINES HOME HEALTH REPORTING HE ALREADY TAKES PT TO THE [facility] IN [place] TWICE PER WEEK AND SHE GETS MAXIMUM AMOUNT OF PHYSICAL THERAPY THAT MEDICARE WILL PAY FOR. SPOUSE REPORTS HE HAS EVERYTHING THAT HE NEEDS TO CARE FOR HIS AT HOME AND WILL CONTINUE TO DO SO. CM INFORMED SPOUSE THAT HIS DAUGHTER CALLED AND WAS CONCERNED ABOUT HIM DRIVING. SPOUSE STATES THAT IS HIS STEP DAUGHTER AND HE IS OK TO DRIVE SINCE GETTING HIS DIABETES MEDICATIONS FROM THE PHARMACY AND PLANS TO DRIVE PT HOME AT DISCHARGE. IMPORTANT MESSAGE FROM MEDICARE PROVIDED AND EXPLAINED. PT'S SPOUSE DECLINED INPATIENT AND [facility]. SPOUSE PLANS TO TAKE PT HOME AND CONTINUE OUTPATIENT THERAPY AT [facility] IN [place]. SPOUSE REPORTS ABILITY TO CARE FOR PT AND THAT SHE IS ALEADY AT HER PRIOR LEVEL OF FUNCTIONING. SPOUSE TO TRANSPORT HOME AT DISCHARGE. NICOLA FONTENOT, CASE MANAGEMENT DCP- Discharge Planning Updated by [id number]: Michelle Reeves on 02/21/18 6:[address] Patient Name: GAB ALEXANDRE Admission Status: ER Accout number: [id number] Admission Date: 02-21-2018 : 1935 Admission Diagnosis: Attending: XANDER LEWIS Current LOS: 1 Anticipated DC Date: 02-23-2018 Planned Disposition: Home Primary Insurance: MEDICARE A & B Discharge Planning Comments: CM met with patient and her to complete initial dc planning assessment. CM educated patient and spouse on the CM role and verbal consent given by patient to complete assessment. Patient lives at home with her who is her primary caregiver and POA. He reports the patient is totally dependent upon him. She has a wheelchair that she uses and wears O2 @ HS. He takes her to Sports Medicine on Tuesdays and for therapy. It takes three of them to ambulate her but she can ambulate 80 feet. At discharge he said it depends on how the patient is doing as to what she will need. He hopes she can return home with him and will continue to do outpatient therapy. CM will continue to follow and will assist as needed with dc plans/needs. Benefits Coordinator: Michelle Reeves RN, [facility] DCPIA - Discharge Planning Initial Assessment Updated by [email or web address]: Michelle Reeves on 02/21/18 6:54 pm * Is the patient Alert and Oriented? No * How many steps to enter\exit or inside your home? None * PCP Dr. Garcia * Pharmacy [facility] in [place] * Preadmission Environment Home with Family * ADLs Total Dependent * Equipment Oxygen Wheelchair * List name and contact numbers for known caregivers / representatives who currently or will assist patient after discharge: Dmitry Post - spouse/POA - [phone] * Verbal permission to speak to the caregivers and representatives has been obtained from the patient. Yes * Community resources currently utilized Other * Please name any agencies selected above. OP therapy @ [facility] on Tuesdays and . * Additional services required to return to the preadmission environment? No * Can the patient safely return to the preadmission environment? Yes * Has this patient been hospitalized within the prior 30 days at any hospital? No Coverage Notice Reviewer: [id number] - Nicola Fontenot Notice Issued Date-Time: 02/25/2018 13:15 Notice Type: IM Discharge Notice Notice Delivered To: Family Member Relationship to Patient: Spouse [employer] Operator Name: DMITRY ALEXANDRE Delivery Method: HAND - Hand Delivered Beth Days: Prior Verbal Notification: Recipient Understood Notice: Yes Recipient Signature: Yes Med Rec Note Co-signed by Attending: Coverage Notice Comment: Last DP export: 02/25/18 2:15 Patient Name: GAB ALEXANDRE Page [phone] at 1537 All edits/amendments must be made on the electronic document DICTATION DATE: 02/25/18 0990 MEDIA SERVICES SPECIALIST: DM 02/25/18 1535 RPT#: [id number] DC DATE: STATUS: ADM IN [facility] [address] [place] [address] END OF REPORT
[2018-02-25 16:20] VITALS: BP 124/50
[2018-02-25 21:39] VITALS: BP 137/55
[2018-02-26 04:00] VITALS: BP 156/53
[2018-02-26 06:21] LABS: BASOPHILS 0.3 % (0-2); EOSINOPHILS 3.2 % (0-7); HEMATOCRIT 33.5 % (36.0-48.0); HEMOGLOBIN 10.3 g/dL (12-16); IMMATURE GRANULOCYTES 0.1 % (0-5); LYMPHOCYTES 33.5 % (15-50); MCH 24.8 pg (26.0-34.0); MCHC 30.7 g/dL (31.0-37.0); MCV 80.5 fL (80.0-100.0); MEAN PLATELET VOLUME 9.3 fL (7.4-10.4); MONOCYTES 9.5 % (2-11); NEUTROPHILS 53.4 % (40-80); PLATELET COUNT 254 10x3/uL (130-400); RBC 4.16 10x6/uL (4.00-5.40); RDW 16.7 % (11.5-14.5); WBC 7.2 10x3/uL (4.8-10.8)
[2018-02-26 06:38] LABS: INR 1.17 (0.85-1.17); PROTIME 14.4 SECONDS (11.6-15.0)
[2018-02-26 06:51] LABS: ALBUMIN 2.6 g/dL (3.4-5.0); BILIRUBIN - TOTAL 0.41 mg/dL (0.2-1.3); CALCIUM 8.6 mg/dL (8.5-10.1); CARBON DIOXIDE 27.9 mmol/L (21.0-32.0); CREATININE - SERUM 0.9 mg/dL (0.6-1.3); POTASSIUM - SERUM 3.9 mmol/L (3.5-5.1); PROTEIN - SERUM 6.5 g/dL (6.4-8.2)
[2018-02-26 08:11] VITALS: BP 135/62
[2018-02-26 12:09] VITALS: BP 120/54
[2018-02-26 15:17] VITALS: BP 146/51
[2018-02-26 20:00] VITALS: BP 139/38
[2018-02-27 00:55] VITALS: BP 140/40
[2018-02-27 04:00] VITALS: BP 132/55
[2018-02-27 05:33] LABS: INR 1.09 (0.85-1.17); PROTIME 13.6 SECONDS (11.6-15.0)
[2018-02-27 07:52] VITALS: BP 126/50
--- NOTE | 2018-02-27 08:51 | MORECARE ---
CASE MANAGEMENT DISCHARGE SUMMARY PATIENT: GAB ALEXANDRE UNIT: [id number] ADM DATE: 02/21/18 AGE: 82 : 37 SEX: F ROOM/BED: D.2104 AUTHOR: ARIS,DOC PHYSICIAN: REFERRING PHYSICIAN: XANDER LEWIS MD DATE OF SERVICE: 02/27/18 Discharge Plan Patient Name: GAB ALEXANDRE [facility] [facility] 1935 Planned Disposition: Inpatient Rehab Anticipated Discharge Date: 02/26/18 Discharge Date: Expected LOS: 5 Initial Reviewer: [id number] Initial Review Date: 02/21/2018 Generated: 02/27/18 9:50 am Comments DCP- Discharge Planning Updated by [id number]: Nicola Fontenot on 02/27/18 7:[address] Patient Name: GAB ALEXANDRE Encounter No: [id number] : 1935 Primary Insurance: MEDICARE A & B Anticipated DC Date: 02-26-2018 Planned Disposition: Inpatient Rehab External Planned Provider:[facility] DCP follow-up note: CM MET WITH PT AND SPOUSE IN ROOM AFTER REVIEWING THERAPY NOTES FROM YESTERDAY. CM INFORMED PT'S SPOUSE THAT PT HAS NOT PROGRESSED TO WALKING AND DISCUSSED AVAILABILITY OF SENIOR LIVING REHAB PROVIDERS, PROVIDED CHOICE LISTING. PT'S SPOUSE REPORTS THAT PT IS PROGRESSING AND THAT THERAPY CONTINUES TO WORK WITH PT AND HE PLANS FOR PT TO BE ACCEPTED FOR INPATIENT REHAB AT [facility]. CM EXPLAINED AGAIN THAT IF PT IS NOT ABLE TO SHOW PROGRESSION AND WALK, SHE WILL NOT BE ACCEPTED TO INPATIENT REHAB AND RECOMMENDED [facility]IOR [facility]IVING REHAB. PT'S SPOUSE REPORTS PT HAS BEEN TO SENIOR LIVING FACILITY IN THE PAST AND HE WILL NOT DO THAT NOW. SPOUSE REPORTS THAT IF PT IS DECLINED BY INPATIENT REHAB, HE WILL TAKE HER HOME AND CONTINUE HER CARE HIMSELF AT HOME HE HAS BEEN DOING. IMPORTANT MESSAGE FROM MEDICARE PROVIDED AND EXPLAINED. CM WAITING COMPLETION OF INPATIENT REHAB PRESCREEN BY [facility]. PT'S SPOUSE UNDERSTANDS THAT PT WILL NEED TO DEMONSTRATE ABILITY TO AMBULATE AND ABILITY TO TOLERATE THREE HOURS OF PROGRESSIVE THERAPY PER DAY. Nicola Fontenot CASE MANAGEMENT DCP- Discharge Planning Updated by [id number]: Nicola Fontenot on 02/25/18 2:[address] Patient Name: GAB ALEXANDRE Encounter No: [id number] : 1935 Primary Insurance: MEDICARE A & B Anticipated DC Date: 02-25-2018 Planned Disposition: Inpatient Rehab External Planned Provider: [facility] DCP follow-up note: CM WAS CALLED TO PT'S ROOM BY PT'S SPOUSE. PT'S SPOUSE REPORTS HE HAS TALKED TO A PERSONAL FRIEND AND HE WOULD LIKE PT TO BE CONSIDERED FOR INPATIENT REHAB AT [facility]. HE IS AWARE THAT PT WILL NEED TO PARTICIPATE IN THRE HOURS OF PROGRESSIVE THERAPY PER DAY AND STATES THAT PT IS ABLE TO WALK AND PARTICIPATE IN THREE HOURS OF THERAPY PER DAY; HE STATES THAT PT WAS WALKING 80 FEET TWICE PER WEEK AT THE [facility] [place]. PT'S SPOUSE IS ALSO AWARE THAT HE IS NOT GOING TO BE ABLE TO STAY WITH THE PT IN THE INPATIENT REHAB UNIT. CM CALLED AND NOTIFIED YESSY WHO INFORMED CM THAT INPATIENT REHAB WILL WATCH PT'S PROGRESSION FOR INPATIENT REHAB CONSIDERATION. CM WAITING COMPLETION OF INPATIENT REHAB PRESCREEN BY [facility]. PT'S SPOUSE UNDERSTANDS THAT PT WILL NEED TO DEMONSTRATE ABILITY TO AMBULATE AND ABILITY TO TOLERATE THREE HOURS OF PROGRESSIVE THERAPY PER DAY. Nicola Fontenot, CASE MANAGEMENT DCP- Discharge Planning Updated by [id number]: Nicola Fontenot on 02/25/18 12:[address] Patient Name: GAB ALEXANDRE Encounter No: [id number] : 1935 Primary Insurance: MEDICARE A & B Anticipated DC Date: 02-25-2018 Planned Disposition: Home DCP follow-up note: CM RECEIVED ORDER FOR INPATIENT REHAB PRESCREENING. CM SPOKE TO PT AND SPOUSE IN ROOM. PT IS LIMITED TO YES AND NO ANSWERS. PT'S SPOUSE REPORTS SINCE PT'S STROKE 6 YEARS AGO, HE IS HER VOICE AND TAKES CARE OF PT AT HOME. CM DISCUSSED AVAILABILTY OF INPATIENT AND SENIOR LIVING REHAB SERVICES. PT'S SPOUSE DECLINES BOTH. SPOUSE REPORTS THAT HE PICKS UP PT AND TRANSFERS PT FROM BED TO WHEELCHAIR TO TOILET AND BACK TO CHAIR UP TO 30 TIMES PER DAY. SPOUSE REPORTS PT TO BE AT HER PRIOR LEVEL OF FUCTIONING PRIOR TO GETTING SICK THIS TIME. CM DISCUSSSED AVAILABILITY OF HOME HEALTH AND MEDICAL EQUIPMENT. PT DECLINES HOME HEALTH REPORTING HE ALREADY TAKES PT TO THE SPOR[facility] IN [place] TWICE PER WEEK AND SHE GETS MAXIMUM AMOUNT OF PHYSICAL THERAPY THAT MEDICARE WILL PAY FOR. SPOUSE REPORTS HE HAS EVERYTHING THAT HE NEEDS TO CARE FOR HIS AT HOME AND WILL CONTINUE TO DO SO. CM INFORMED SPOUSE THAT HIS DAUGHTER CALLED AND WAS CONCERNED ABOUT HIM DRIVING. SPOUSE STATES THAT IS HIS STEP DAUGHTER AND HE IS OK TO DRIVE SINCE GETTING HIS DIABETES MEDICATIONS FROM THE PHARMACY AND PLANS TO DRIVE PT HOME AT DISCHARGE. IMPORTANT MESSAGE FROM MEDICARE PROVIDED AND EXPLAINED. PT'S SPOUSE DECLINED INPATIENT AND [facility]HAB [facility]. SPOUSE PLANS TO TAKE PT HOME AND CONTINUE OUTPATIENT THERAPY AT [facility] IN [place]. SPOUSE REPORTS ABILITY TO CARE FOR PT AND THAT SHE IS ALEADY AT HER PRIOR LEVEL OF FUNCTIONING. SPOUSE TO TRANSPORT HOME AT DISCHARGE. NICOLA FONTENOT, CASE MANAGEMENT DCP- Discharge Planning Updated by [id number]: Michelle Reeves on 02/21/18 6:[address] Patient Name: GAB ALEXANDRE Admission Status: ER Accout number: [id number] Admission Date: 02-21-2018 : 1935 Admission Diagnosis: Attending: XANDER LEWIS Current LOS: 1 Anticipated DC Date: 02-23-2018 Planned Disposition: Home Primary Insurance: MEDICARE A & B Discharge Planning Comments: CM met with patient and her to complete initial dc planning assessment. CM educated patient and spouse on the CM role and verbal consent given by patient to complete assessment. Patient lives at home with her who is her primary caregiver and POA. He reports the patient is totally dependent upon him. She has a wheelchair that she uses and wears O2 @ HS. He takes her to [facility] on Tuesdays and for therapy. It takes three of them to ambulate her but she can ambulate 80 feet. At discharge he said it depends on how the patient is doing as to what she will need. He hopes she can return home with him and will continue to do outpatient therapy. CM will continue to follow and will assist as needed with dc plans/needs. Gallery Host: Michelle Reeves RN, [facility] DCPIA - Discharge Planning Initial Assessment Updated by [id number]: Michelle Reeves on 02/21/18 6:54 pm * Is the patient Alert and Oriented? No * How many steps to enter\exit or inside your home? None * PCP Dr. Garcia * Pharmacy [facility] * Preadmission Environment Home with Family * ADLs Total Dependent * Equipment Oxygen Wheelchair * List name and contact numbers for known caregivers / representatives who currently or will assist patient after discharge: Dmitry Post - spouse/POA - [phone] * Verbal permission to speak to the caregivers and representatives has been obtained from the patient. Yes * Community resources currently utilized Other * Please name any agencies selected above. [facility] therapy [facility] on Tuesdays and . * Additional services required to return to the preadmission environment? No * Can the patient safely return to the preadmission environment? Yes * Has this patient been hospitalized within the prior 30 days at any hospital? No Coverage Notice Reviewer: MIKAELA Fontenot Notice Issued Date-Time: 02/25/2018 13:15 Notice Type: IM Discharge Notice Notice Delivered To: Family Member Relationship to Patient: Spouse Cord Splicer Name: DMITRY ALEXANDRE Delivery Method: HAND - Hand Delivered Beth Days: Prior Verbal Notification: Recipient Understood Notice: Yes Recipient Signature: Yes Med Rec Note Co-signed by Attending: Coverage Notice Comment: Reviewer: MIKAELA Fontenot Notice Issued Date-Time: 02/27/2018 8:40 Notice Type: IM Discharge Notice Notice Delivered To: Family Member Relationship to Patient: Spouse Cord Splicer Name: DMITRY ALEXANDRE Delivery Method: HAND - Hand Delivered Beth Days: Prior Verbal Notification: Recipient Understood Notice: Yes Recipient Signature: Yes Med Rec Note Co-signed by Attending: Coverage Notice Comment: Last DP export: 02/25/18 2:35 Patient Name: GAB ALEXANDRE Page [phone] at 0851 All edits/amendments must be made on the electronic document DICTATION DATE: 02/27/18 0850 SHOP TECHNICIAN: SHEILA 02/27/18 0850 RPT#: [id number] DC DATE: STATUS: ADM IN [facility] [address] [place] [address] END OF REPORT
[2018-02-27 11:34] VITALS: BP 108/61
--- NOTE | 2018-02-27 14:48 | MORECARE ---
CASE MANAGEMENT DISCHARGE SUMMARY PATIENT: GAB ALEXANDRE UNIT: [id number] ADM DATE: 02/21/18 AGE: 82 : 37 SEX: F ROOM/BED: D.2104 AUTHOR: ARIS,DOC PHYSICIAN: REFERRING PHYSICIAN: XANDER LEWIS MD DATE OF SERVICE: 02/27/18 Discharge Plan Patient Name: GAB ALEXANDRE Facility: [facility]:[place] : 1935 Planned Disposition: Inpatient Rehab Anticipated Discharge Date: 02/27/18 Discharge Date: Expected LOS: 6 Initial Reviewer: [id number] Initial Review Date: 02/21/2018 Generated: 02/27/18 3:48 pm Comments DCP- Discharge Planning Updated by [id number]: Nicola Fontenot on 02/27/18 1:[address] Patient Name: GAB ALEXANDRE Encounter No: [id number] : 1935 Primary Insurance: MEDICARE A & B Anticipated DC Date: 02-27-2018 Planned Disposition: Inpatient Rehab External Planned Provider: [facility] INPATIENT REH[facility] DCP follow-up note: CM SPOKE TO THERAPIST WHO INFORMED CM THAT PT DID WALK A FEW STEPS AND APPEARS TO BE PROGRESSING WITH THERAPY. CM CALLED AND NOTIFIED KEVIN OF INPATIENT REHAB WHO REPORTS THEY WILL ACCEPT TODAY FOR REHAB, KEVIN WORKING ON PT'S SCREENING. CM RECEIVED CALL FROM YESSY OF INPATIENT REHAB, THEY WILL ACCEPT FOR REHAB, PT TO ADMIT TO ROOM 1111-B. PT NOTIFIED WHO POINTED TO SPOUSE, SPOUSE IN AGREEMENT WITH DISCHARGE TO INPATIENT REHAB. CM NOTIFIED PATTERN CHART WRITER NURSE AND MISSILE PAD MECHANIC OF ACCEPTANCE TO ROOM 1111-B. [facility] INPATIENT REHAB IS READY TO ACCEPT PT AND NURSE REPORT. Nicola Fontenot CASE JESUS DCP- Discharge Planning Updated by [id number]: Nicola Fontenot on 02/27/18 7:[address] Patient Name: GAB ALEXANDRE Encounter No: [id number] : 1935 Primary Insurance: MEDICARE A & B Anticipated DC Date: 02-26-2018 Planned Disposition: Inpatient Rehab External Planned Provider:[facility] DCP follow-up note: CM MET WITH PT AND SPOUSE IN ROOM AFTER REVIEWING THERAPY NOTES FROM YESTERDAY. CM INFORMED PT'S SPOUSE THAT PT HAS NOT PROGRESSED TO WALKING AND DISCUSSED AVAILABILITY OF [facility] RE[facility] PROVIDERS, PROVIDED CHOICE LISTING. PT'S SPOUSE REPORTS THAT PT IS PROGRESSING AND THAT THERAPY CONTINUES TO WORK WITH PT AND HE PLANS FOR PT TO BE ACCEPTED FOR INPATIENT REHAB AT [facility]. CM EXPLAINED AGAIN THAT IF PT IS NOT ABLE TO SHOW PROGRESSION AND WALK, SHE WILL NOT BE ACCEPTED TO INPATIENT REHAB AND RECOMMENDED [facility]. PT'S SPOUSE REPORTS PT HAS BEEN TO [facility] FACILITY IN THE PAST AND HE WILL NOT DO THAT NOW. SPOUSE REPORTS THAT IF PT IS DECLINED BY INPATIENT REHAB, HE WILL TAKE HER HOME AND CONTINUE HER CARE HIMSELF AT HOME HE HAS BEEN DOING. IMPORTANT MESSAGE FROM MEDICARE PROVIDED AND EXPLAINED. CM WAITING COMPLETION OF [facility]. PT'S SPOUSE UNDERSTANDS THAT PT WILL NEED TO DEMONSTRATE ABILITY TO AMBULATE AND ABILITY TO TOLERATE THREE HOURS OF PROGRESSIVE THERAPY PER DAY. Nicola Fontenot, CASE MANAGEMENT DCP- Discharge Planning Updated by [id number]: Nicola Fontenot on 02/25/18 2:[address] Patient Name: GAB ALEXANDRE Encounter No: [id number] : 1935 Primary Insurance: MEDICARE A & B Anticipated DC Date: 02-25-2018 Planned Disposition: Inpatient Rehab External Planned Provider: [facility] INPATIENT REH[facility] DCP follow-up note: CM WAS CALLED TO PT'S ROOM BY PT'S SPOUSE. PT'S SPOUSE REPORTS HE HAS TALKED TO A PERSONAL FRIEND AND HE WOULD LIKE PT TO BE CONSIDERED FOR INPATIENT REHAB AT [facility]. HE IS AWARE THAT PT WILL NEED TO PARTICIPATE IN THRE HOURS OF PROGRESSIVE THERAPY PER DAY AND STATES THAT PT IS ABLE TO WALK AND PARTICIPATE IN THREE HOURS OF THERAPY PER DAY; HE STATES THAT PT WAS WALKING 80 FEET TWICE PER WEEK AT THE [facility] IN [place]. PT'S SPOUSE IS ALSO AWARE THAT HE IS NOT GOING TO BE ABLE TO STAY WITH THE PT IN THE INPATIENT REHAB UNIT. CM CALLED AND NOTIFIED YESSY WHO INFORMED CM THAT INPATIENT REHAB WILL WATCH PT'S PROGRESSION FOR INPATIENT REHAB CONSIDERATION. CM WAITING COMPLETION OF INPATIENT REHAB PRESCREEN BY THE [facility]. PT'S SPOUSE UNDERSTANDS THAT PT WILL NEED TO DEMONSTRATE ABILITY TO AMBULATE AND ABILITY TO TOLERATE THREE HOURS OF PROGRESSIVE THERAPY PER DAY. Nicola Fontenot, CASE MANAGEMENT DCP- Discharge Planning Updated by [id number]: Nicola Fontenot on 02/25/18 12:[address] Patient Name: GAB ALEXANDRE Encounter No: [id number] : 1935 Primary Insurance: MEDICARE A & B Anticipated DC Date: 02-25-2018 Planned Disposition: Home DCP follow-up note: CM RECEIVED ORDER FOR INPATIENT REHAB PRESCREENING. CM SPOKE TO PT AND SPOUSE IN ROOM. PT IS LIMITED TO YES AND NO ANSWERS. PT'S SPOUSE REPORTS SINCE PT'S STROKE 6 YEARS AGO, HE IS HER VOICE AND TAKES CARE OF PT AT HOME. CM DISCUSSED AVAILABILTY OF INPATIENT AND [facility] RE[facility]AB SERVICES. PT'S SPOUSE DECLINES BOTH. SPOUSE REPORTS THAT HE PICKS UP PT AND TRANSFERS PT FROM BED TO WHEELCHAIR TO TOILET AND BACK TO CHAIR UP TO 30 TIMES PER DAY. SPOUSE REPORTS PT TO BE AT HER PRIOR LEVEL OF FUCTIONING PRIOR TO GETTING SICK THIS TIME. CM DISCUSSSED AVAILABILITY OF HOME HEALTH AND MEDICAL EQUIPMENT. PT DECLINES HOME HEALTH REPORTING HE ALREADY TAKES PT TO THE SP[facility] IN [place] TWICE PER WEEK AND SHE GETS MAXIMUM AMOUNT OF PHYSICAL THERAPY THAT MEDICARE WILL PAY FOR. SPOUSE REPORTS HE HAS EVERYTHING THAT HE NEEDS TO CARE FOR HIS AT HOME AND WILL CONTINUE TO DO SO. CM INFORMED SPOUSE THAT HIS DAUGHTER CALLED AND WAS CONCERNED ABOUT HIM DRIVING. SPOUSE STATES THAT IS HIS STEP DAUGHTER AND HE IS OK TO DRIVE SINCE GETTING HIS DIABETES MEDICATIONS FROM THE PHARMACY AND PLANS TO DRIVE PT HOME AT DISCHARGE. IMPORTANT MESSAGE FROM MEDICARE PROVIDED AND EXPLAINED. PT'S SPOUSE DECLINED INPATIENT AND [facility]. SPOUSE PLANS TO TAKE PT HOME AND CONTINUE OUTPATIENT THERAPY AT [facility] IN [place]. SPOUSE REPORTS ABILITY TO CARE FOR PT AND THAT SHE IS ALEADY AT HER PRIOR LEVEL OF FUNCTIONING. SPOUSE TO TRANSPORT HOME AT DISCHARGE. NICOLA FONTENOT CASE MANAGEMENT DCP- Discharge Planning Updated by [id number]: Michelle Reeves on 02/21/18 6:[address] Patient Name: GAB ALEXANDRE Admission Status: ER Accout number: [id number] Admission Date: 02-21-2018 : 1935 Admission Diagnosis: Attending: XANDER LEWIS Current LOS: 1 Anticipated DC Date: 02-23-2018 Planned Disposition: Home Primary Insurance: MEDICARE A & B Discharge Planning Comments: CM met with patient and her to complete initial dc planning assessment. CM educated patient and spouse on the CM role and verbal consent given by patient to complete assessment. Patient lives at home with her who is her primary caregiver and POA. He reports the patient is totally dependent upon him. She has a wheelchair that she uses and wears O2 @ HS. [facility] to [facility] on T[facility] and for therapy. It takes three of them to ambulate her but she can ambulate 80 feet. At discharge he said it depends on how the patient is doing as to what she will need. He hopes she can return home with him and will continue to do outpatient therapy. CM will continue to follow and will assist as needed with dc plans/needs. Back Hanger: Michelle Reeves RN, [facility] DCPIA - Discharge Planning Initial Assessment Updated by [id number]: Michelle Reeves on 02/21/18 6:54 pm * Is the patient Alert and Oriented? No * How many steps to enter\exit or inside your home? None * PCP Dr. Garcia * Pharmacy [facility] in [place] * Preadmission Environment Home with Family * ADLs Total Dependent * Equipment Oxygen Wheelchair * List name and contact numbers for known caregivers / representatives who currently or will assist patient after discharge: Dmitry Post - spouse/POA - [phone] * Verbal permission to speak to the caregivers and representatives has been obtained from the patient. Yes * Community resources currently utilized Other * Please name any agencies selected above. OP therapy @ [facility] on Tuesdays and . * Additional services required to return to the preadmission environment? No * Can the patient safely return to the preadmission environment? Yes * Has this patient been hospitalized within the prior 30 days at any hospital? No Coverage Notice Reviewer: [id number] Burton Fontenot Notice Issued Date-Time: 02/25/2018 13:15 Notice Type: IM Discharge Notice Notice Delivered To: Family Member Relationship to Patient: Spouse Cardiovascular Disease Specialist Name: DMITRY ALEXANDRE Delivery Method: HAND - Hand Delivered Beth Days: Prior Verbal Notification: Recipient Understood Notice: Yes Recipient Signature: Yes Med Rec Note Co-signed by Attending: Coverage Notice Comment: Reviewer: [id number] Burton Fontenot Notice Issued Date-Time: 02/27/2018 8:40 Notice Type: IM Discharge Notice Notice Delivered To: Family Member Relationship to Patient: Spouse Cardiovascular Disease Specialist Name: DMITRY ALEXANDRE Delivery Method: HAND - Hand Delivered Beth Days: Prior Verbal Notification: Recipient Understood Notice: Yes Recipient Signature: Yes Med Rec Note Co-signed by Attending: Coverage Notice Comment: Last DP export: 02/27/18 7:51 am Patient Name: GAB ALEXANDRE Page [phone] at 1448 All edits/amendments must be made on the electronic document DICTATION DATE: 02/27/18 1448 DIAMOND DIE POLISHER: SHEILA 02/27/18 1448 RPT#: [id number] DC DATE: STATUS: ADM IN [facility] [address] [place] [address] END OF REPORT
[2018-02-27 15:57] VITALS: BP 138/63
== END 2018-02-27 16:25 | DRG 641 ==
LOC: D.ER 13:58 → D.EDHOLD 17:09 → D.M2 17:09
PROVIDERS: Family Medicine; Internal Medicine Nephrology; ADMIT Emergency Medicine
DX: E86.0 Dehydration (principal); I69.351 Hemiplegia and hemiparesis following cerebral infarction affecting right dominant side; E87.6 Hypokalemia; G47.33 Obstructive sleep apnea (adult) (pediatric); R00.1 Bradycardia, unspecified; D50.9 Iron deficiency anemia, unspecified

== ENCOUNTER 2018-02-27 16:50 | Inpatient (IN) | payer MEDICARE, OTHER ==
[~2018-02-27] VITALS: Ht 162.6 cm; Wt 77.1 kg
--- NOTE | 2018-02-27 16:30 | NUR ---
PT ARRIVED TO UNIT VIA BED ACCOMPANIED BY HOSPITAL STAFF AND SPOUSE. 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 PT ORIENTED TO ROOM. SPOUSE STATES HE IS GOING HOME FOR THE NIGHT. IVONNE.
[2018-02-27 17:57] VITALS: BMI 29.2
--- NOTE | 2018-02-27 19:15 | NUR ---
GREETED PATIENT AND INTRODUCED MYSELF HER NURSE FOR THE EVENING. ASSITED PATIENT WITH BEDPAN. PATIENT IS APHASIC. PATIENT IS ABLE TO COMMUNICATE BY POINTING AND NODDING HEAD. CALL LIGHT IN REACH. BED IN LOWEST POSITION
[2018-02-27 20:00] VITALS: BP 147/54
--- NOTE | 2018-02-27 21:50 | NUR ---
ASSISTED PATIENT ONTO BEDPAIN. PATIENT SMALL AMOUNT OF YELLOW URINE. PATIENT CLEANED AND REPOSITIONED FOR COMFORT. CALL LIGHT IN REACH. BED IN LOWEST POSITION.
--- NOTE | 2018-02-27 23:28 | NUR ---
PATIENT ASLEEP WITH EYES CLOSED. HOB AT 30 DEGREES. RESPIRATIONS EVEN. NO SIGNS OF DISTRESS. CALL LIGHT IN REACH. BED IN LOWEST POSITION.
--- NOTE | 2018-02-28 00:06 | NUR ---
PATIENT ASSISTED TO BEDPAN.
--- NOTE | 2018-02-28 00:20 | NUR ---
PATIENT OFF BEDPAN AND REPOSITIONED FOR COMFORT. CALL LIGHT IN REACH. BED IN LOWEST POSITION.
--- NOTE | 2018-02-28 02:17 | NUR ---
PATIENT ASLEEP WITH EYES CLOSED LAYING IN SUPINE POSITION. HOB AT 30 DEGREES. RESPIRATIONS EVEN. NO SIGNS OF DISTRESS. CALL LIGHT IN REACH.
--- NOTE | 2018-02-28 02:24 | NUR ---
ASSISTED PATIENT ON TO BEDPAN. CALL LIGHT IN REACH TO NOTIFY WHEN FINISHED.
--- NOTE | 2018-02-28 02:33 | NUR ---
PATIENT ASSISTED OFF BED DEGROOT. REPOSITIONED IN BED FOR COMFORT LAYING ON RIGHT SIDE. CALL LIGHT IN REACH. BED IN LOWEST POSITON
--- NOTE | 2018-02-28 04:04 | NUR ---
ASSISTED PATIENT ON TO BEDPAN.
--- NOTE | 2018-02-28 04:23 | NUR ---
PATIENT ASSISTED FROM BED DEGROOT. CLEANED AND REPOSTIONED FOR COMFORT. CALL LIGHT IN REACH. BED IN LOWEST POSITION. SIDE RAILS UP X2.
[2018-02-28 07:09] LABS: INR 1.07 (0.85-1.17); PROTIME 13.4 SECONDS (11.6-15.0)
[2018-02-28 07:11] LABS: ANION GAP 8.9 mmol/L (8-16); CALCIUM 8.3 mg/dL (8.5-10.1); CARBON DIOXIDE 27.4 mmol/L (21.0-32.0); CREATININE - SERUM 0.8 mg/dL (0.6-1.3); POTASSIUM - SERUM 3.3 mmol/L (3.5-5.1)
[2018-02-28 07:31] LABS: BASOPHILS 0.3 % (0-2); EOSINOPHILS 2.4 % (0-7); HEMATOCRIT 33.3 % (36.0-48.0); HEMOGLOBIN 10.2 g/dL (12-16); IMMATURE GRANULOCYTES 0.1 % (0-5); LYMPHOCYTES 32.3 % (15-50); MCH 24.4 pg (26.0-34.0); MCHC 30.6 g/dL (31.0-37.0); MCV 79.7 fL (80.0-100.0); MEAN PLATELET VOLUME 9.4 fL (7.4-10.4); MONOCYTES 9.3 % (2-11); NEUTROPHILS 55.6 % (40-80); PLATELET COUNT 251 10x3/uL (130-400); RBC 4.18 10x6/uL (4.00-5.40); RDW 16.5 % (11.5-14.5); WBC 7.6 10x3/uL (4.8-10.8)
[2018-02-28 08:00] VITALS: BP 151/72
--- NOTE | 2018-02-28 08:00 | NUR ---
PATIENT IS ALERT. NON VERBAL EXCEPT FOR YES AND NO ANSWEARS. SEEMS TO BE SOMEWHAT ORIENTATED TO WHAT IS GOING ON AROUND HER. CALL LIGHT WITHIN REACH. DOES USE CALL LIGHT FOR BATHROOM NEEDS. WILL CONTINUE WITH PLAN OF CARE.
[2018-02-28 08:59] VITALS: Ht 162.6 cm; Wt 77.1 kg
--- NOTE | 2018-02-28 10:00 | NUR ---
OCCUPATIONAL THERAPIST IN PATIENTS ROOM. PATIENT GETTTING A SHOWER WITH HELP OF OCCUPATIONAL THERAPY. LINENS ON BED CHANGED.
--- NOTE | 2018-02-28 14:41 | NUR ---
PATIENT IS A MAX ASST OF TWO. FLACCID ON HER RIGHT SIDE. USING BED DEGROOT. CONT. OF B/B
--- NOTE | 2018-02-28 17:56 | NUR ---
IN ROOM WITH PATIENT. HELPING PATIENT WITH SUPPER.
[2018-02-28 20:00] VITALS: BP 149/49
--- NOTE | 2018-02-28 20:01 | NUR ---
PATIENT RECIEVED SITTING UP IN BED. PATIENT ASSESSMENT DONE. BED LOW. CALL LIGHT WITHIN REACH. WILL CONTINUE TO MONITOR.
--- NOTE | 2018-03-01 00:27 | NUR ---
PATIENT EYES CLOSED. RESPIRATIONS 18 & EVEN. PATIENT BED LOW. CALL LIGHT WITHIN REACH. WILL CONTINUE TO MONITOR.
--- NOTE | 2018-03-01 03:48 | NUR ---
RESTING IN BED WITH NO DISTRESS NOTED. RESPIRATIONS UNLABORED. CALL LIGHT IN REACH.
[2018-03-01 07:01] LABS: INR 1.05 (0.85-1.17); PROTIME 13.2 SECONDS (11.6-15.0)
[2018-03-01 07:11] LABS: BASOPHILS 0.3 % (0-2); EOSINOPHILS 1.7 % (0-7); HEMATOCRIT 33.4 % (36.0-48.0); HEMOGLOBIN 10.3 g/dL (12-16); IMMATURE GRANULOCYTES 0.1 % (0-5); LYMPHOCYTES 30.1 % (15-50); MCH 24.8 pg (26.0-34.0); MCHC 30.8 g/dL (31.0-37.0); MCV 80.3 fL (80.0-100.0); MEAN PLATELET VOLUME 9.3 fL (7.4-10.4); MONOCYTES 6.6 % (2-11); NEUTROPHILS 61.2 % (40-80); PLATELET COUNT 245 10x3/uL (130-400); RBC 4.16 10x6/uL (4.00-5.40); RDW 16.4 % (11.5-14.5); WBC 7.1 10x3/uL (4.8-10.8)
[2018-03-01 07:22] LABS: ANION GAP 12.7 mmol/L (8-16); CALCIUM 8.1 mg/dL (8.5-10.1); CARBON DIOXIDE 26.4 mmol/L (21.0-32.0); CREATININE - SERUM 0.8 mg/dL (0.6-1.3); POTASSIUM - SERUM 3.1 mmol/L (3.5-5.1)
[2018-03-01 07:57] VITALS: BP 94/43
--- NOTE | 2018-03-01 08:00 | NUR ---
PT RESTING IN BED WITH EYES OPEN ASSISTED WITH BREAKFAST SET UP WILL MONITER
--- NOTE | 2018-03-01 10:58 | NUR ---
PATIENT ADMITTED TO REHAB FROM ACUTE FLOOR. DR. HEBERT IS HER PCP. DME AT HOME IS O2 AND A WHEELCHAIR. DISCHARGE PLANS ARE FOR PATIENT TO RETURN HOME WITH HER SPOUSE. WILL CONTINUE TO FOLLOW WITH PATIENT.
--- NOTE | 2018-03-01 18:39 | NUR ---
PT RESTING IN BED WITH EYES OPEN CALL LIGHT IN REACH WILL MONITER
--- NOTE | 2018-03-01 19:30 | NUR ---
PT RESTING IN BED WITH EYES OPEN. ALERT TO SURROUNDINGS. PT ONLY ANSWERS QUESTIONS WITH YES OR NO, BUT ANSWERS APPROPRIATELY. RIGHT SIDE IS FLACCID. PT ASSISTED TO USE BEDPAN WITH MAX ASSIST. VSS. SR'S ARE UP X 3 IN BED. CALL LIGHT AND BEDSIDE TABLE ARE WITHIN EASY REACH.
[2018-03-01 21:14] VITALS: BP 103/49
--- NOTE | 2018-03-01 21:37 | NUR ---
PT IS RESTING IN BED WITH EYES OPEN. ASSISTED TO USE BEDPAN AT THIS TIME. PT VOIDING FREQUENTLY IN SMALL AMOUNTS.
--- NOTE | 2018-03-02 00:01 | NUR ---
PT RESTING IN BED WITH EYES CLOSED. NO ACUTE DISTRESS NOTED.
--- NOTE | 2018-03-02 03:00 | NUR ---
PT ASSISTED TO USE BEDPAN. NO FURTHER NEEDS VOICED.
[2018-03-02 07:51] LABS: INR 1.07 (0.85-1.17); PROTIME 13.4 SECONDS (11.6-15.0)
--- NOTE | 2018-03-02 08:15 | NUR ---
EATING BREAKFAST. ALERT AND ORIENTED. NO C/O PAIN. CL IN REACH.
--- NOTE | 2018-03-02 15:31 | NUR ---
ASSITED TO BED X 2 STAFF FROM . REPOSITIONED UP IN BED. NO DISTRESS NOTED.
--- NOTE | 2018-03-02 17:02 | NUR ---
NO CHANGE IN ASSESSMENT. RESTING WO DISTRESS.
--- NOTE | 2018-03-02 21:57 | NUR ---
PT PLACED ON BEDPAN, FLACCID ON RT SIDE, VITALS TAKEN, MEDS GIVEN, FLUIDS AND CALL LIGHT WITHIN REACH
[2018-03-02 23:17] VITALS: BP 141/55
--- NOTE | 2018-03-03 00:20 | NUR ---
PT ASLEEP NO NEEDS NOTED FLUIDS AND CALL LIGHT WITHIN REACH
--- NOTE | 2018-03-03 03:10 | NUR ---
PT INCONTINENT AT THIS TIME, CALLED FOR BEDPAN AFTER HAD ALREADY WET CLEANED DRIED AND CHANGED PT, FLUIDS AND CALL LIGHT WITHIN REACH
[2018-03-03 06:24] LABS: INR 1.36 (0.85-1.17); PROTIME 16.2 SECONDS (11.6-15.0)
--- NOTE | 2018-03-03 07:26 | NUR ---
RESTING WITH EYES CLOSED. NO DISTRESS NOTED. CL IN REACH.
[2018-03-03 08:14] VITALS: BP 142/49
--- NOTE | 2018-03-03 10:05 | NUR ---
REPOSITIONED UP IN BED AND CHANGED POSITION WITH PILLOWS FOR SUPPORT. BUTT PASTE APPLIED TO BLANCHABLE REDNESS TO BUTTOCKS.
--- NOTE | 2018-03-03 16:06 | NUR ---
NO CHANGE IN ASSESSMENT. RESP EVEN AND UNLABORED.
--- NOTE | 2018-03-03 21:08 | NUR ---
PT AWAKE BEDPAN NEEDED EVERY HALF HR SINCE SHIFT BEGAN, MINIMAL URINE OUTPUT IF ANY, NEEDED ICE WATER, GIVEN, FLUIDS AND CALL LIGHT WITHIN REACH
[2018-03-04 00:16] VITALS: BP 151/54
--- NOTE | 2018-03-04 01:23 | NUR ---
PT USED BEDPAN, NO OTHER NEEDS NOTED FLUIDS AND CALL LIGHT WITHIN REACH
--- NOTE | 2018-03-04 05:04 | NUR ---
NOTED PT DISCOMFORT WHEN ASKED PT IF WAS IN PAIN THE ANSWER WAS YES,BUT PT COULD NOT TELL ME PAIN LOCATION OR LEVEL, WHILE PT WAS ON BEDPAN NOTED RT LEG JERKING I ASKED IF HER LEG WAS HURTING THE ANSWER WAS YES, PT ON 81MG ASPRIN PO DAILY @ 0900, AND COUMADIN 5MG DAILY DAILY @1500, REQUESTED PRN IBUPROPHEN 400MG Q6 HR, WILL NOTE DR LEWIS ABOUT PT LEG SPASMS. FLUIDS AND CALL LIGHT WITHIN REACH
[2018-03-04 07:37] LABS: BASOPHILS 0.3 % (0-2); EOSINOPHILS 1.4 % (0-7); HEMATOCRIT 33.3 % (36.0-48.0); HEMOGLOBIN 10.4 g/dL (12-16); IMMATURE GRANULOCYTES 0.2 % (0-5); LYMPHOCYTES 38.6 % (15-50); MCH 24.8 pg (26.0-34.0); MCHC 31.2 g/dL (31.0-37.0); MCV 79.5 fL (80.0-100.0); MEAN PLATELET VOLUME 9.3 fL (7.4-10.4); MONOCYTES 6.7 % (2-11); NEUTROPHILS 52.8 % (40-80); PLATELET COUNT 262 10x3/uL (130-400); RBC 4.19 10x6/uL (4.00-5.40); RDW 16.1 % (11.5-14.5); WBC 6.3 10x3/uL (4.8-10.8)
[2018-03-04 07:44] LABS: CALC OSMOLALITY 284 mosm/kg (275-300); CALCIUM 8.5 mg/dL (8.5-10.1); CARBON DIOXIDE 24.7 mmol/L (21.0-32.0); CHLORIDE - SERUM 105 mmol/L (98-107); CREATININE - SERUM 0.7 mg/dL (0.6-1.3); GLUCOSE 95 mg/dL (74-106); POTASSIUM - SERUM 3.4 mmol/L (3.5-5.1); SODIUM 140 mmol/L (136-145); UREA NITROGEN 28 mg/dL (7-18); eGFR NON AFRICAN AMERICAN 85 mL/min (90-120)
--- NOTE | 2018-03-04 07:47 | NUR ---
PATIENT AWAKE AND ALERT THIS MORNING. STATES THAT LEG FEELS BETTER SINCE TAKING PAIN MEDICATION. ASSISTED PATIENT UP IN BED SO THAT SHE COULD EAT BREAKFAST. FEEDING SELF BREAKFAST AT THIS TIME. WILL CONTINUE TO MONITOR.
[2018-03-04 07:58] VITALS: BP 153/45
--- NOTE | 2018-03-04 09:53 | NUR ---
Regular diet with 70% average po intake past 3 days. Pt nonverbal during visit but nodded yes and no. Pt has a good appetite and no requests at this time Therapy reports pt able to feed self and eats well once she is set up for meals Provided Coumadin FDI handout for RD following
[2018-03-04 10:26] LABS: INR 1.62 (0.85-1.17); PROTIME 18.6 SECONDS (11.6-15.0)
--- NOTE | 2018-03-04 12:52 | NUR ---
PATIENT ATE 100% OF LUNCH. FED SELF WITH SOME ASSISTANCE FROM . RESTING QUIETLY IN BED AT THIS TIME. WILL CONTINUE TO MONITOR.
--- NOTE | 2018-03-04 16:03 | NUR ---
PATIENT ASSISTED TO BED DEGROOT. VOIDED SMALL AMOUNT. NO COMPLAINTS AT THIS TIME. CALL LIGHT WITHIN REACH. WILL CONTINUE TO MONITOR.
[2018-03-04 19:00] VITALS: BP 141/53
--- NOTE | 2018-03-04 19:05 | NUR ---
GREETED PATIENT AND ASSITED ONTO BED DEGROOT. CALL LIGHT IN REACH.
--- NOTE | 2018-03-04 23:24 | NUR ---
ASSISTED PATIENT BACK TO BED AND REPOSITIONED FOR COMFORT. CALL LIGHT IN REACH. BED IN LOWEST POSITION.
--- NOTE | 2018-03-05 00:15 | NUR ---
PATIENT ASLEEP LAYING ON RIGHT SIDE. HOB AT 30 DEGREES. CALL LIGHT IN REACH. BED IN LOWEST POSITION. NO SIGNS OF DISTRESS.
--- NOTE | 2018-03-05 02:00 | NUR ---
PATIENT ASLEEP WITH EYES CLOSED LAYING ON RIGHT SIDE. RESPIRATIONS EVEN. NO SIGNS OF DISTRESS. CALL LIGHT IN REACH. BED IN LOWEST POSITION.
--- NOTE | 2018-03-05 04:15 | NUR ---
PATIENT ASSISTED TO BED DEGROOT. HAD YELLOW CLEAR URINE. PATIENT REPOSITIONED FOR COMFORT. CALL LIGHT IN REACH. BED IN LOWEST POSITION.
--- NOTE | 2018-03-05 07:28 | NUR ---
LYING ON SIDE.DENIES NEEDS.
[2018-03-05 07:44] LABS: INR 1.6 (0.85-1.17); PROTIME 18.4 SECONDS (11.6-15.0)
[2018-03-05 08:00] VITALS: BP 149/61
--- NOTE | 2018-03-05 08:02 | NUR ---
PT RESTING IN BED ASSISTED WITH BREAKFAST SET UP PT EATING CALL LIGHT IN REACH WILL MONITER
--- NOTE | 2018-03-05 18:37 | NUR ---
PT RESTING IN BED WITH EYES OPEN CALL LIGHT IN REACH WILL MONITER
--- NOTE | 2018-03-05 19:50 | NUR ---
RECEIVED PATIENT LAYING ON BACK WATCHING TV. PATIENT ASSESSMENT & VITAL SIGNS DONE. PATIENT HAD NO C/O OF PAIN OR DISTRESS. PATIENT BED LOW. ALARM ON. CALL LIGHT WITHIN REACH. WILL CONTINUE TO MONITOR.
[2018-03-05 20:20] VITALS: BP 142/49
--- NOTE | 2018-03-05 23:05 | NUR ---
PATIENT AWAKE WATCHING TV. CALL LIGHT WITHIN REACH. BED LOW. ALARM ON. WILL CONTINUE TO MONITOR.
--- NOTE | 2018-03-05 23:10 | NUR ---
PATIENT AWAKE WATCHING TV. PATIENT BED LOW. PATIENT USED URINAL, 10CC OF URINE OUTPUT. PATIENT CLEANED, MADE COMFORTABLE. CALL LIOGHT WITHIN REACH. WILL CONTINUE TO MONITOR.
--- NOTE | 2018-03-06 04:06 | NUR ---
RESTING IN BED WITH RESPIRATIONS UNLABORED. NO DISTRESS NOTED. HAS CALLED FOR BEDPAN A FEW TIMES TONGIHT. COMMUNICATES WITH GESTURES AND OCCASIONAL WORDS SUCH YES AND NO.
--- NOTE | 2018-03-06 05:38 | NUR ---
PATIENT EYES CLOSED. RESPIRATIONS 18 & EVEN. PATIENT AWAKE MOST OF THE NIGHT VOIDING IN BED DEGROOT. PATIENT BED LOW. ALARM ON. CALL LIGHT WITHIN REACH. WILL CONTINUE TO MONITOR.
[2018-03-06 08:00] VITALS: BP 145/47
--- NOTE | 2018-03-06 08:00 | NUR ---
PATIENT IS ALERT. HAS APHASIA ABLE TO ANSWEAR YES AND NO QUESTIONS ONLY. BED ALARM ON. CALL LIGHT WITHIN REACH. WILL CONTINUE TO WITH PLAN OF CARE.
[2018-03-06 08:18] LABS: CALC OSMOLALITY 288 mosm/kg (275-300); CALCIUM 8.7 mg/dL (8.5-10.1); CHLORIDE - SERUM 105 mmol/L (98-107); CREATININE - SERUM 0.7 mg/dL (0.6-1.3); GLUCOSE 92 mg/dL (74-106); POTASSIUM - SERUM 3.4 mmol/L (3.5-5.1); SODIUM 142 mmol/L (136-145); UREA NITROGEN 30 mg/dL (7-18); eGFR NON AFRICAN AMERICAN 85 mL/min (90-120)
[2018-03-06 08:26] LABS: BASOPHILS 0.3 % (0-2); EOSINOPHILS 2.2 % (0-7); HEMATOCRIT 32.7 % (36.0-48.0); HEMOGLOBIN 9.9 g/dL (12-16); LYMPHOCYTES 30.6 % (15-50); MCH 24.4 pg (26.0-34.0); MCHC 30.3 g/dL (31.0-37.0); MCV 80.7 fL (80.0-100.0); MEAN PLATELET VOLUME 9.3 fL (7.4-10.4); NEUTROPHILS 57.9 % (40-80); PLATELET COUNT 290 10x3/uL (130-400); RBC 4.05 10x6/uL (4.00-5.40); RDW 16.3 % (11.5-14.5); WBC 6.9 10x3/uL (4.8-10.8)
[2018-03-06 08:29] LABS: INR 2.12 (0.85-1.17); PROTIME 23.1 SECONDS (11.6-15.0)
--- NOTE | 2018-03-06 10:00 | NUR ---
PATIENT IN REHAB ROOM. WORKING WITH OCCUPATIONAL THERAPIST.
--- NOTE | 2018-03-06 12:20 | NUR ---
SITTING UP IN BED EATING.
--- NOTE | 2018-03-06 14:36 | NUR ---
PATIENT USING CALL LIGHT FOR NEED. THIS NURSE ASKED IF SHE NEEDED TO GO TO THE BATHROOM. PATIENT STATED "YES". THIS NURSE HELPED PATIENT ONTO BEDPAN. PATIENT IS A MAX ASST OF TWO
[2018-03-06 19:00] VITALS: BP 147/47
--- NOTE | 2018-03-06 19:00 | NUR ---
PT ON RT SIDE USED CALL LIGHT, PT IS ASSIST X 2, PLACED ON BEDPAN, USED CALL LIGHT WHEN THRU, REMOVED BEDPAN SMALL AMOUNT OF URINE, CLEANED PT PULLED HER UP IN BED, COVERED WITH BLANKET, PLACED FLUIDS AND CALL LIGHT WITHIN REACH
--- NOTE | 2018-03-07 00:18 | NUR ---
PT CONTINUES TO HAVE BLADDER FREQUENCY, ASLEEP AT THIS TIME, NO NEEDS NOTED, FLUIDS AND CALL LIGHT WITHIN REACH
--- NOTE | 2018-03-07 04:20 | NUR ---
PT ASLEEP AT THIS TIME BUT CONTINUES TO HAVE FREQUENCY OF BLADDER, FLUIDS AND CALL LIGHT WITHIN REACH
--- NOTE | 2018-03-07 07:30 | NUR ---
PT LYING IN BED. CL IN REACH. PT DENIES NEEDS OR PAIN. PULLED PT UP IN BED SO PT COULD EAT BREAKFAST. BED IN LOW POSITION. SIDE RAILS X2. RESP EVEN AND UNLABORED. WILL CONTINUE TO MONITOR.
[2018-03-07 08:00] VITALS: BP 121/58
--- NOTE | 2018-03-07 10:22 | NUR ---
PT SITTING UP IN WHEELCHAIR IN ROOM. CL IN REACH. PT DENIES NEEDS OR PAIN.
[2018-03-07 10:26] LABS: PROTIME 27.1 SECONDS (11.6-15.0)
[2018-03-07 10:28] LABS: INR 2.6 (0.85-1.17)
--- NOTE | 2018-03-07 15:51 | NUR ---
PT RESTING QUIETLY. CL IN REACH. NO SIGNS OF DISTRESS OR PAIN. IN ROOM. BED IN LOW POSITION. SIDE RAILS X2. RESP EVEN AND UNLABORED. WCTM
--- NOTE | 2018-03-07 18:40 | NUR ---
PT LYING IN BED. CL IN REACH. ASSISTED PT ON AND OFF BEDPAN. PT DENIES NEEDS OR PAIN. WCTM
[2018-03-07 19:00] VITALS: BP 149/51
--- NOTE | 2018-03-07 19:49 | NUR ---
PT WATCHING MAURIZIO HURTADO NEEDED SMALL AMT OF URINE, NO OTHER NEEDS NOTED FLUIDS AND CALL LIGHT WITHIN REACH, PT CONTINUES TO ROLL TO RIGHT RLE IN FIXED POSITION, LLE HAS MOVEMENT BUT STIFF
[2018-03-08 07:46] LABS: BASOPHILS 0.4 % (0-2); EOSINOPHILS 1.9 % (0-7); HEMATOCRIT 31.8 % (36.0-48.0); HEMOGLOBIN 9.8 g/dL (12-16); IMMATURE GRANULOCYTES 0.2 % (0-5); LYMPHOCYTES 32.2 % (15-50); MCH 24.4 pg (26.0-34.0); MCHC 30.8 g/dL (31.0-37.0); MCV 79.1 fL (80.0-100.0); NEUTROPHILS 57.3 % (40-80); PLATELET COUNT 263 10x3/uL (130-400); RBC 4.02 10x6/uL (4.00-5.40); RDW 16.3 % (11.5-14.5); WBC 5.4 10x3/uL (4.8-10.8)
[2018-03-08 07:50] LABS: ANION GAP 11.3 mmol/L (8-16); CALCIUM 8.5 mg/dL (8.5-10.1); CARBON DIOXIDE 26.5 mmol/L (21.0-32.0); CREATININE - SERUM 0.8 mg/dL (0.6-1.3); POTASSIUM - SERUM 3.8 mmol/L (3.5-5.1); PROTIME 31.6 SECONDS (11.6-15.0)
[2018-03-08 08:00] VITALS: BP 185/44
--- NOTE | 2018-03-08 08:00 | NUR ---
PATIENT IS ALERT/ORIENT. APHASIC. CAN ANSWEAR QUESTIONS WITH YES OR NO. IN ROOM. BREAKFAST TRAY SET UP FOR PATIENT. CARTONS OPENED AND FOOD CUT FOR PATIENT. CALL LIGHT WITHIN REACH. VOICES NO NEEDS AT THIS TIME. WILL CONTINUE WITH PLAN OF CARE
[2018-03-08 08:01] LABS: INR 3.16 (0.85-1.17)
--- NOTE | 2018-03-08 09:43 | NUR ---
DR. Estela LEWIS INTO SEE PATIENT. NEW ORDERS RECEIVED
--- NOTE | 2018-03-08 12:37 | NUR ---
Nutrition Follow Up: Chart reviewed. [facility] with Chopped Meat PO Intake: 84% meal avg BM: 03/07/18 Meds and labs reviewed Rec continue regular diet with DURALUMIN MECHANIC recs for consistencies. RD following.
--- NOTE | 2018-03-08 17:32 | NUR ---
PATIENT IS A MAX ASST OF TWO FROM WHEELCHAIR ONTO TOILET. PATIENT UNABLE TO DO ANY LINCOLN CARE FOR SELF
[2018-03-08 19:58] VITALS: BP 120/37
--- NOTE | 2018-03-09 00:33 | NUR ---
PATIENT MANAGER INTENSIVE CARE LIGHT EVERY 15 TO 30 MINUTES. PATIENT HAS MINIMAL VOID EACH TIME. DR. LEWIS NOTIFIED BY HIS NOTE PAD. WILL CONTINUE TO MONITOR PATIENT.
--- NOTE | 2018-03-09 05:54 | NUR ---
PT ASLEEP NO NEEDS NOTED FLUIDS AND CALL LIGHT WITHIN REACH
--- NOTE | 2018-03-09 08:15 | NUR ---
PT RESTING IN BED WITH EYES OPEN CALL LIGHT IN REACH NO PROBLEMS WILL MONITER
[2018-03-09 08:22] LABS: INR 3.31 (0.85-1.17); PROTIME 33.8 SECONDS (11.6-15.0)
--- NOTE | 2018-03-09 10:37 | NUR ---
RESTING QUIETLY IN BED.CL IN REACH.
[2018-03-09 19:00] VITALS: BP 140/52
--- NOTE | 2018-03-09 19:18 | NUR ---
PATIENT IS RESTING IN HER BED. PLACED ON BEDPAN. DENIES ANY OTHER NEEDS. BED IS DOWN LOW WITH SIDE RAILS UP X2 AND CALL LIGHT IS IN REACH.
--- NOTE | 2018-03-09 20:55 | NUR ---
PATIENT IS STAYING ON HER BEDPAN. MEDICATION TAKEN WITHOUT COMPLICATIONS. VITAL SIGNS ARE STABLE. BED IS DOWN LOW WITH SIDE RAILS UP X2. CALL LIGHT IS IN REACH.
--- NOTE | 2018-03-10 00:10 | NUR ---
PATIENT IS SLEEPING. BED IS DOWN LOW WITH SIDE RAILS UP X2. BED ALARM ACTIVATED AND CALL LIGHT IN REACH.
--- NOTE | 2018-03-10 04:00 | NUR ---
PATIENT IS SLEEPING. BED IS DOWN LOW WITH SIDE RAILS UP X2. BED ALARM ACTIVATED AND CALL LIGHT IN REACH.
[2018-03-10 07:12] LABS: INR 3.25 (0.85-1.17); PROTIME 33.4 SECONDS (11.6-15.0)
--- NOTE | 2018-03-10 11:48 | NUR ---
PATIENT AWAKE AND ALERT THIS MORNING. FED SELF 80% OF BREAKFAST. CALLS FOR BEDPAN OFTEN. VOIDING SMALL AMOUNTS EACH TIME. NO COMPLAINTS OF PAIN OR DISCOMFORT.RESTING QUIETLY AND WATCHING TV AT THIS TIME. WILL CONTINUE TO MONITOR.
[2018-03-10 11:54] VITALS: BP 138/36
--- NOTE | 2018-03-10 16:55 | NUR ---
RESTING IN BED THIS AFTERNOON WITH AT BEDSIDE. NO COMPLAINTS OF PAIN OR DISCOMFORT. ASKING FOR BEDPAN OFTEN. WILL CONTINUE TO MONITOR.
[2018-03-10 19:07] VITALS: BP 122/45
--- NOTE | 2018-03-10 19:38 | NUR ---
RESTING IN BED WITH RESPIRATIONS UNLABORED. NO DISTRESS NOTED. LEFT SIDE FLACCID. TOTAL CARE. SAFETY MEASURES IN PLACE.
--- NOTE | 2018-03-11 01:19 | NUR ---
AWAKE RESTING IN BED. CALLS FREQUENTLY FOR BEDPAN BUT DOES NOT ALWAYS VOID. RESPIRATIONS UNLABORED. NO DISTRESS NOTED.
--- NOTE | 2018-03-11 03:19 | NUR ---
BLADDER TRAINING ATTEMPTED WITH PATIENT THIS SHIFT WITH BEDPAN OFFERED Q ONE HOUR BUT PATIENT KEEPS CALLING AND MOTIONING FOR BEDPAN EVERY 20-45 MINUTES AND VOIDS VERY SMALL AMOUNTS OR NONE AT ALL. BLADDER SCAN DONE AND SHOW RESULTS OF ZERO ML OF RESIDUAL URINE.
[2018-03-11 07:28] LABS: BASOPHILS 0.3 % (0-2); EOSINOPHILS 1.8 % (0-7); HEMATOCRIT 32.7 % (36.0-48.0); HEMOGLOBIN 9.9 g/dL (12-16); IMMATURE GRANULOCYTES 0.1 % (0-5); LYMPHOCYTES 37.8 % (15-50); MCH 24.1 pg (26.0-34.0); MCHC 30.3 g/dL (31.0-37.0); MCV 79.8 fL (80.0-100.0); PLATELET COUNT 282 10x3/uL (130-400); RDW 15.8 % (11.5-14.5); WBC 7.2 10x3/uL (4.8-10.8)
[2018-03-11 07:46] LABS: ANION GAP 9.7 mmol/L (8-16); CALCIUM 8.2 mg/dL (8.5-10.1); CREATININE - SERUM 0.9 mg/dL (0.6-1.3); POTASSIUM - SERUM 3.7 mmol/L (3.5-5.1)
[2018-03-11 07:49] LABS: INR 3.69 (0.85-1.17); PROTIME 35.8 SECONDS (11.6-15.0)
--- NOTE | 2018-03-11 10:21 | NUR ---
PATIENT ALERT AND ORIENTED THIS MORNING. NO COMPLAINTS OF PAIN OR DISCOMFORT. HAD INCONTIEINT EPISODE X1. ATE 100% OF BREAKFAST, FED SELF. UP FOR THERAPY AT THIS TIME. WILL CONTINUE TO MONITOR.
[2018-03-11 10:45] VITALS: BP 146/53
--- NOTE | 2018-03-11 16:05 | NUR ---
TOLERATED THERAPY WELL THIS AFTERNOON. RESTING QUIETLY AT THIS TIME WITH AT BEDSIDE.
[2018-03-11 19:00] VITALS: BP 134/37
--- NOTE | 2018-03-11 19:34 | NUR ---
PT AWAKE, ON BEDPAN, NO NEEDS NOTED FLUIDS AND CALL LIGHT WITHIN REACH
--- NOTE | 2018-03-12 01:35 | NUR ---
PT ASLEEP NO NEEDS NOTED, FLUIDS AND CALL LIGHT WITHIN REACH
--- NOTE | 2018-03-12 04:21 | NUR ---
PT ASLEEP NO NEEDS NOTED FLUIDS AND CALL LIGHT WITHIN REACH
[2018-03-12 07:33] VITALS: BP 152/60
[2018-03-12 07:55] LABS: INR 2.35 (0.85-1.17)
--- NOTE | 2018-03-12 08:00 | NUR ---
SITTING UP IN BED EATING BREAKFAST. DOES NOT ANSWER QUESTIONS BUT POINTS AT TIMES FOR THINGS SHE NEEDS. MAX TISHT TO TURN. CALL LIGHT IN REACH
--- NOTE | 2018-03-12 13:51 | NUR ---
Nutrition Follow Up: [facility]: [facility] Soft with Chopped Meat PO Intake: 78% meal avg BM: 03/08/18 Meds and labs reviewed Rec continue current diet. RD following.
--- NOTE | 2018-03-12 14:56 | NUR ---
NO LONGER FEEL SICK TO HER STOMACH. ATE LUNCH AND JUST HAD A SNACK WTIH NO S/S N/V. AM MEDS NOW GIVEN.
--- NOTE | 2018-03-12 19:00 | NUR ---
ASSISTED PATIENT TO BATHROOM VIA WHEELCHAIR AND BACK TO BED AND REPOSITIONED FOR COMFORT. CALL LIGHT IN REACH. BED IN LOWEST POSITION.
--- NOTE | 2018-03-12 19:15 | NUR ---
GREETED PATIENT AND INTRODUCED MYSELF. PATIENTS VITALS WHERE TAKEN. CALL LIGHT IN REACH. BED IN LOWEST POSITION.
[2018-03-12 22:02] VITALS: BP 137/54
--- NOTE | 2018-03-12 22:50 | NUR ---
PATIENT ASSISTED ONTO AND OFF OF BED DEGROOT. PATIENT PRODUCED SMALL AMOUNT OF CLEAR YELLOW URINE. REPOSITIONED ON RIGHT SIDE. CALL LIGHT IN REACH. BED IN LOWEST POSITION.
--- NOTE | 2018-03-13 00:41 | NUR ---
ASSISTED PATIENT ONTO BEDPAN.
--- NOTE | 2018-03-13 01:47 | NUR ---
PATIENT ASSISTED ONTO BEDPAN.
--- NOTE | 2018-03-13 02:05 | NUR ---
ASSISTED PATIENT FROM BEDPAN. PATIENT HAD SMALL AMOUNT OF CLEAR YELLOW URINE. PATIENT REPOSITIONED IN BED FOR COMFORT LAYING ON RIGHT SIDE WITH PILLOWS BEHIND BACK. CALL LIGHT IN REACH.
--- NOTE | 2018-03-13 04:00 | NUR ---
PATIENT ASLEEP WITH EYES CLOSED LAYING ON RIGHT SIDE WITH PILLOWS BRIDGED BEHIND BACK. PILLOW INBETWEEN LEGS TO AVOID RUBBING. RESPIRATIONS EVEN. NO SIGNS OF DISTRESS. CALL LIGHT IN REACH. BED IN LOWEST POSITION.
[2018-03-13 06:56] LABS: ANION GAP 11.3 mmol/L (8-16); CALCIUM 8.4 mg/dL (8.5-10.1); CARBON DIOXIDE 27.1 mmol/L (21.0-32.0); CREATININE - SERUM 0.8 mg/dL (0.6-1.3); POTASSIUM - SERUM 3.4 mmol/L (3.5-5.1)
[2018-03-13 07:03] LABS: BASOPHILS 0.3 % (0-2); HEMATOCRIT 31.6 % (36.0-48.0); HEMOGLOBIN 9.8 g/dL (12-16); IMMATURE GRANULOCYTES 0.1 % (0-5); LYMPHOCYTES 30.1 % (15-50); MCH 24.1 pg (26.0-34.0); MEAN PLATELET VOLUME 9.2 fL (7.4-10.4); MONOCYTES 8.7 % (2-11); NEUTROPHILS 58.8 % (40-80); PLATELET COUNT 279 10x3/uL (130-400); RBC 4.06 10x6/uL (4.00-5.40); RDW 15.9 % (11.5-14.5); WBC 6.9 10x3/uL (4.8-10.8)
[2018-03-13 07:22] LABS: MCV 77.8 fL (80.0-100.0)
[2018-03-13 07:23] LABS: INR 1.74 (0.85-1.17); PROTIME 19.7 SECONDS (11.6-15.0)
--- NOTE | 2018-03-13 15:19 | NUR ---
IN THERAPY ZUNILDA WELL,
--- NOTE | 2018-03-13 15:31 | NUR ---
CARE TEAM MEETING: PATIENT TENATIVE DISCHARGE DATE IS 03/15/18 TO HER HOME. HER SPOUSE DECLINES ANY ASSISTANCE AT THIS TIME. HE WILL ARRANGE FOR PATIENT TO GO BACK TO WHERE SHE WAS DOING THERAPY. HE DECLINES ANY OF MY ASSISTANCE. GAVE HIM INFORMATION REGARDING OUT PATIENT SPEECH . WILL CONTINUE TO FOLLOW WITH PATIENT.
--- NOTE | 2018-03-13 18:34 | NUR ---
PT RESTING IN BED WITH EYES OPEN AT BEDSIDE HELPING PT EAT WILL MONITER
--- NOTE | 2018-03-13 19:30 | NUR ---
AWAKE RESTING IN BED. 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 RESPIRATIONS UNLABORED. NO DISTRESS NOTED.
[2018-03-14 01:19] VITALS: BP 135/48
--- NOTE | 2018-03-14 01:58 | NUR ---
RESTING IN BED WITH EYES CLOSED. NO DISTRESS NOTED. RESPIRATIONS UNLABORED.
--- NOTE | 2018-03-14 04:21 | NUR ---
AWAKE, USING BEDPAN. NO DISTRESS NOTED.
[2018-03-14 06:34] LABS: INR 1.66 (0.85-1.17)
[2018-03-14 08:00] VITALS: BP 130/74
--- NOTE | 2018-03-14 12:05 | NUR ---
CL IN REACH.
--- NOTE | 2018-03-14 14:16 | NUR ---
PATIENT UP IN W/C AT BEDSIDE, RECEIVED SHOWER PER TX. TOOK MEDS WITHOUT DIFFICULTY, AT BEDSIDE. C/L WITHIIN REACH
--- NOTE | 2018-03-14 17:22 | NUR ---
PATIENT IN BED AT BEDSIDE. DINNER TRAY SERVED AND CONSUMED APPROX. 50%. DENIES ANY C/O PAIN OR DISCOMFORT WHEN ASKED. C/L WITHIN REACH AND SR'S UP X'S 2.
[2018-03-14 19:00] VITALS: BP 134/50
--- NOTE | 2018-03-14 20:10 | NUR ---
AWAKE AND RESTING IN BED WITH RESPIRATIONS UNLABORED. ASSISTED TO USE BEDPAN. NO DISTRESS NOTED. LEFT LEG DRESSING DRY AND INTACT. CALL LIGHT INTACT.
--- NOTE | 2018-03-15 03:12 | NUR ---
RESTING IN BED WITH NO DISTRESS NOTED. CALL LIGHT IN REACH. USED BEDPAN.
--- NOTE | 2018-03-15 06:33 | NUR ---
AWAKE AND ALERT. RESTING IN BED. NO DISTRESS NOTED.
[2018-03-15 07:16] LABS: BASOPHILS 0.1 % (0-2); EOSINOPHILS 1.8 % (0-7); HEMATOCRIT 33.4 % (36.0-48.0); HEMOGLOBIN 10.1 g/dL (12-16); INR 1.87 (0.85-1.17); LYMPHOCYTES 30.8 % (15-50); MCH 23.8 pg (26.0-34.0); MCHC 30.2 g/dL (31.0-37.0); MCV 78.8 fL (80.0-100.0); MEAN PLATELET VOLUME 9.5 fL (7.4-10.4); MONOCYTES 9.5 % (2-11); NEUTROPHILS 57.8 % (40-80); PLATELET COUNT 280 10x3/uL (130-400); PROTIME 20.9 SECONDS (11.6-15.0); RBC 4.24 10x6/uL (4.00-5.40); RDW 15.9 % (11.5-14.5); WBC 6.8 10x3/uL (4.8-10.8)
[2018-03-15 07:34] LABS: ANION GAP 11.1 mmol/L (8-16); CALCIUM 8.4 mg/dL (8.5-10.1); CARBON DIOXIDE 28.9 mmol/L (21.0-32.0); CREATININE - SERUM 0.9 mg/dL (0.6-1.3)
--- NOTE | 2018-03-15 08:00 | NUR ---
PATIENT IS ALERT/ORIENT. SITTING UP IN BED TO EAT BREAKFAST. CALL LIGHT WITHIN REACH. VOICES NO NEEDS AT THIS TIME. WILL CONTINUE WITH PLAN OF CARE
--- NOTE | 2018-03-15 08:00 | NUR ---
IN BED CL IN REACH.
--- NOTE | 2018-03-15 09:40 | NUR ---
PATIENT DISCHARGING HOME TODAY WITH FAMILY. PATIENT SPOUSE DECLINES ANY NEW DME NEEDS AND ANY HOME HEALTH. INFORMED SPOUSE OF THE [address] HEBERT 03/25/18 @ 10:15. [facility] FORM SIGNED AND FILED IN CHART. DISCHARGE INSTRUCTIONS WITH [facility] FAXED TO PCP.
--- NOTE | 2018-03-15 10:41 | NUR ---
PATIENTS HERE TO TAKE PATIENT HOME. DISCHARGE INSTRUCTIONS GONE OVER WITH PATIENT AND . PATIENT DOES NOT WANT THIS NURSE TO CALL IN ANY PRESCRIPTION MEDICATIONS. STATES HE HAS ALL DISCHARGE MEDICATIONS AT HOME.
--- NOTE | 2018-03-15 10:45 | NUR ---
PATIENT TAKEN OUT TO CAR BY STAFF.
--- NOTE | 2018-03-28 08:31 | RHP ---
PATIENT: GAB ALEXANDRE MEDICAL RECORD: [id number] ACCOUNT: [id number] LOCATION:[facility] : 39 ADMISSION DATE: 02/27/18 REHABILITATION HISTORY AND PHYSICAL EXAMINATION POST ADMISSION PHYSICIAN EXAMINATION DATE OF ADMISSION: 02/27/2018. ADMITTING DIAGNOSIS: Disuse myopathy. HISTORY OF PRESENT ILLNESS: The patient is admitted to the inpatient rehab with a neurological condition. She is an 82-year-old female patient who presented to the ED via EMS with generalized weakness and change in her level of consciousness. Her apparently states she usually gets up about 9, but he went in to wake her at 9 and she was pretty weak, lethargic, and having difficulty getting up. 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 Her is her director electronics, assists with ADLs and mobility. She has been going to outpatient therapy and states that she has been ambulating up to 80 feet. Her aluminum can collector did note that she had new onset paroxysmal atrial fibrillation, hypertension, hyperlipidemia, shortness of breath, dyspnea with exertion. During her acute hospital stay, she has been having some problems with her electrolytes. She has got a new onset paroxysmal atrial fib. She did have an 8-second pause on telemetry. Medications have been changed. She continues on telemetry at this time. She continues to require supplemental O2. She has weakness when arising from bed to chair. She is a fall risk, has increased problems with debility, mobility, and increased self-care deficits, these are all barriers to discharge home at this time. She is set up for max assist for ADLs, max assist to total assist for mobility. She is aphasic, but can answer yes and no and point. She and her plan on her being able to return back home after her stay here in the acute care hospital with her director electronics hopefully at her prior level of functioning or better. COMORBIDITIES: In this patient include aphasia, atrial fib, bradycardia, microcytic anemia, obstructive sleep apnea, hypokalemia, dehydration, hypertension, hyperlipidemia, leukocytosis, shortness of breath. PAST MEDICAL HISTORY: Significant for CVA, seizures, aphasia, right-sided weakness, dentures, sleep apnea, menopause. PAST SURGICAL HISTORY: None. ALLERGIES: No known drug allergies. CURRENT MEDICATIONS: She is on warfarin. She takes 3 mg on Sunday, Sunday and Sunday and 1.5 mg the other 4 days a week, Pravachol 80 mg daily, Protonix 40 mg daily, Cozaar 100 mg daily, Floranex 460 mg daily, hydrochlorothiazide 12.5 mg daily, Lexapro 10 mg daily, baclofen 10 mg daily, aspirin chewable 81 mg daily, potassium 10 mg q.h.s., polyethylene glycol 17 grams in 8 ounces of water daily, metoprolol 50 mg b.i.d., Keppra 750 mg b.i.d., Colace 100 mg b.i.d., and MiraLax 17 g in 8 ounces of water daily. HABITS: No alcohol or tobacco use. FAMILY HISTORY: Noncontributory. HISTORY AND PHYSICAL [id number] GAB ALEXANDRE SOCIAL HISTORY: The patient hopes to return home with her family members. REVIEW OF SYSTEMS: GENERAL: Does complain of weakness, but only with yes answers. HEENT: Denies cold, cough, or congestion. CARDIOVASCULAR: Denies chest pain. PHYSICAL EXAMINATION: VITAL SIGNS: Stable, afebrile. GENERAL: Elderly female, in no acute distress upon exam. HEENT: Normocephalic and atraumatic. Mucosa moist. NECK: Supple. No lymphadenopathy. LUNGS: Clear at this time. HEART: Regular rate and rhythm. ABDOMEN: Benign. EXTREMITIES: No clubbing, cyanosis, or edema. NEUROLOGIC: She does have noted weakness and also noted to have some difficulty with her speech. LABORATORY DATA: White count of 7.6, H&H of 10 and 33, and platelet count is noted to be 251. Her MCV is 79.7 consistent with her microcytic anemia. INR is 1.07. Sodium 138, potassium 3.3, BUN and creatinine of 30 and 0.8, and blood sugar is noted to be 73. 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 The patient has potential to make improvement. We instituted the following multidisciplinary therapies to include, but not limited to physical, occupational, respiratory, speech, nutritional services, prosthetics and orthotics. Given her complex medical condition and risk for more complications, rehabilitation services cannot be provided at a low level of care such as skilled nurse facility. PLAN: 1. Admit to [facility] for intensive inpatient therapy to include the following disciplines: A. Physical therapy to improve gait, all transfer skills and bed mobility to a modified independent level. B. Occupational therapy to improve activities of daily living to a modified independent level. C. Case management to assist with discharge planning and placement options. D. Nutrition to assist with nutritional needs. E. Rehabilitation nursing to assist in monitoring the patient's underlying medical conditions and to assist with any type of bowel or bladder management. 2. The patient's current medication and medical care will be continued. 3. The patient will be placed on standard fall precautions. 4. The patient's estimated length of stay is approximately 7-10 days. 5. We will discuss the patient during care team staff meeting this week. We will watch her INR and adjust medications closely. TRANSINT:[id number] Voice Confirmation ID: [id number] DOCUMENT ID: [id number] 03/26/2018 Edited for hayden MARION. HISTORY AND PHYSICAL [id number] GAB ALEXANDRE notes whether there has been none or any medical/functional change since admission: - No change since preadmission screen. SANAM attests patient continues to be appropriate for IRF: - Continues to be appropriate. XANDER LEWIS MD at 0831 CC: [id number] DICTATION DATE: 02/28/18 0904 MASH FILTER PRESS OPERATOR: 02/28/18 09 DIS IN 03/15/18 [facility] [address] [place] [address]
== END 2018-03-15 11:20 | disposition home or self-care (01) | DRG 93 ==
LOC: D.REHAB 16:50
PROVIDERS: ADMIT Emergency Medicine
DX: G72.89 Other specified myopathies (principal); I69.320 Aphasia following cerebral infarction; R00.1 Bradycardia, unspecified; G47.33 Obstructive sleep apnea (adult) (pediatric); D50.9 Iron deficiency anemia, unspecified; E87.6 Hypokalemia; E86.0 Dehydration; I10 Essential (primary) hypertension; E78.5 Hyperlipidemia, unspecified; D72.829 Elevated white blood cell count, unspecified; R06.02 Shortness of breath; I48.0 Paroxysmal atrial fibrillation

== ENCOUNTER 2018-09-08 11:42 | Emergency (ER) | payer MEDICARE, OTHER ==
[~2018-09-08] VITALS: Ht 162.6 cm; Wt 72.7 kg
[2018-09-08 11:44] VITALS: Ht 162.6 cm; Wt 72.7 kg
[2018-09-08 12:31] LABS: BASOPHILS 0.1 % (0-2); EOSINOPHILS 1.1 % (0-7); HEMOGLOBIN 10.3 g/dL (12-16); IMMATURE GRANULOCYTES 0.1 % (0-5); LYMPHOCYTES 22.9 % (15-50); MCH 22.1 pg (26.0-34.0); MCHC 30.3 g/dL (31.0-37.0); MCV 72.8 fL (80.0-100.0); MEAN PLATELET VOLUME 8.8 fL (7.4-10.4); MONOCYTES 6.9 % (2-11); NEUTROPHILS 68.9 % (40-80); PLATELET COUNT 295 10x3/uL (130-400); RBC 4.67 10x6/uL (4.00-5.40); WBC 7.9 10x3/uL (4.8-10.8)
[2018-09-08 12:36] LABS: INR 1.7 (0.85-1.17); PROTIME 19.3 SECONDS (11.6-15.0)
[2018-09-08 12:44] LABS: ALBUMIN 3.5 g/dL (3.4-5.0); ALKALINE PHOSPHATASE 78 U/L (46-116); ALT (SGPT) 32 U/L (10-68); BILIRUBIN - TOTAL 0.43 mg/dL (0.2-1.3); CALC OSMOLALITY 284 mosm/kg (275-300); CALCIUM 9.1 mg/dL (8.5-10.1); CARBON DIOXIDE 30.6 mmol/L (21.0-32.0); CHLORIDE - SERUM 102 mmol/L (98-107); CREATININE - SERUM 1.9 mg/dL (0.6-1.3); GLUCOSE 111 mg/dL (74-106); POTASSIUM - SERUM 4.3 mmol/L (3.5-5.1); PROTEIN - SERUM 7.5 g/dL (6.4-8.2); SODIUM 138 mmol/L (136-145); UREA NITROGEN 36 mg/dL (7-18); eGFR NON AFRICAN AMERICAN 27 mL/min (90-120)
[2018-09-08 12:54] LABS: CKMB 7.2 U/L (0.0-3.6); CREATINE KINASE 494 UL (21-215); PRO BNP 751 pg/mL (0-450); THYROID STIMULATING HORMONE 2.38 uIU/mL (0.36-3.74); TROPONIN-I 0.028 ng/mL (0.000-0.060)
[2018-09-08 13:33] VITALS: BP 122/76
== END 2018-09-08 13:34 | disposition home or self-care (01) ==
LOC: D.ER 11:42
PROVIDERS: Emergency Medicine
DX: I63.89 Other cerebral infarction (principal); R13.10 Dysphagia, unspecified; R09.89 Other specified symptoms and signs involving the circulatory and respiratory systems; K21.9 Gastro-esophageal reflux disease without esophagitis

== ENCOUNTER 2018-09-09 14:39 | Inpatient (IN) | payer MEDICARE, OTHER ==
[~2018-09-09] VITALS: Ht 162.6 cm; Wt 69.9 kg
[2018-09-09 16:03] VITALS: BP 145/55; BMI 26.5
[2018-09-09 16:12] LABS: BASOPHILS 0.4 % (0-2); EOSINOPHILS 1.7 % (0-7); HEMATOCRIT 36.3 % (36.0-48.0); HEMOGLOBIN 11.1 g/dL (12-16); IMMATURE GRANULOCYTES 0.1 % (0-5); LYMPHOCYTES 28.2 % (15-50); MCH 22.5 pg (26.0-34.0); MCHC 30.6 g/dL (31.0-37.0); MCV 73.6 fL (80.0-100.0); MEAN PLATELET VOLUME 9.1 fL (7.4-10.4); MONOCYTES 7.8 % (2-11); NEUTROPHILS 61.8 % (40-80); PLATELET COUNT 298 10x3/uL (130-400); RBC 4.93 10x6/uL (4.00-5.40); RDW 18.2 % (11.5-14.5); WBC 8.1 10x3/uL (4.8-10.8)
[2018-09-09 16:56] LABS: ALBUMIN 3.5 g/dL (3.4-5.0); ALKALINE PHOSPHATASE 79 U/L (46-116); ALT (SGPT) 31 U/L (10-68); BILIRUBIN - TOTAL 0.45 mg/dL (0.2-1.3); CALC OSMOLALITY 288 mosm/kg (275-300); CALCIUM 9.5 mg/dL (8.5-10.1); CARBON DIOXIDE 31.5 mmol/L (21.0-32.0); CHLORIDE - SERUM 102 mmol/L (98-107); CKMB 4.4 U/L (0.0-3.6); GLUCOSE 89 mg/dL (74-106); POTASSIUM - SERUM 3.9 mmol/L (3.5-5.1); PROTEIN - SERUM 7.2 g/dL (6.4-8.2); SODIUM 141 mmol/L (136-145); TROPONIN-I < 0.017 ng/mL (0.000-0.060); UREA NITROGEN 38 mg/dL (7-18)
[2018-09-09 16:57] LABS: CREATINE KINASE 243 UL (21-215); eGFR NON AFRICAN AMERICAN 56 mL/min (90-120)
[2018-09-09 22:06] VITALS: BP 139/63
--- NOTE | 2018-09-10 01:24 | NUR ---
REC'D, AT CHGE OF SHIFT,IN BED LYING ON RIGHT SIDE.EYES CLOSED RESP, DEEP AND EVEN, AT BEDSIDE. WILL CONTINUE TO MONITOR FOR ANY CHGES AND FOLLOW CURRENT PLAN OF CARE,
--- NOTE | 2018-09-10 04:00 | NUR ---
I have reviewed this patient and I concur with the Shift Assessment completed by the Licensed Practical Nurse today this shift.
[2018-09-10 04:45] VITALS: BP 106/49
[2018-09-10 07:21] LABS: % SATURATION 6 % (15-55); IRON 23 ug/dl (35-150); TOTAL IRON BIND CAPACITY 362 ug/dl (260-445); UNSAT IRON BIND CAPACITY 339 ug/dl (150-375)
[2018-09-10 07:49] LABS: FERRITIN 12 ng/mL (3-244)
[2018-09-10 08:41] LABS: ANION GAP 13.1 mmol/L (8-16); CALCIUM 8.8 mg/dL (8.5-10.1); CARBON DIOXIDE 28.4 mmol/L (21.0-32.0); CREATININE - SERUM 0.9 mg/dL (0.6-1.3); POTASSIUM - SERUM 3.5 mmol/L (3.5-5.1)
[2018-09-10 09:07] LABS: APPEARANCE CLEAR (CLEAR); COLOR YELLOW (YELLOW); GLUCOSE NEGATIVE (NEGATIVE); KETONE MODERATE mg/dL (NEGATIVE); NITRITE NEGATIVE (NEGATIVE); PROTEIN NEGATIVE (NEGATIVE); SPECIFIC GRAVITY 1.015 (1.005-1.020)
[2018-09-10 09:08] VITALS: BP 138/68
[2018-09-10 09:08] LABS: BACTERIA FEW /hpf (NONE SEEN); BILIRUBIN NEGATIVE (NEGATIVE); EPITHELIAL CELLS 0-5 /hpf (0-5); RED CELLS - URINE 0-5 /hpf (0-5); UROBILINOGEN NORMAL (NORMAL); WHITE CELLS - URINE OCC /hpf (0-5)
[2018-09-10 09:09] LABS: MUCUS <1+ /lpf (NONE SEEN)
[2018-09-10 09:17] LABS: BASOPHILS 0.6 % (0-2); HEMATOCRIT 33.4 % (36.0-48.0); HEMOGLOBIN 10.1 g/dL (12-16); IMMATURE GRANULOCYTES 0.1 % (0-5); LYMPHOCYTES 34.2 % (15-50); MCH 22.2 pg (26.0-34.0); MCHC 30.2 g/dL (31.0-37.0); MCV 73.4 fL (80.0-100.0); MEAN PLATELET VOLUME 9.2 fL (7.4-10.4); MONOCYTES 9.1 % (2-11); PLATELET COUNT 314 10x3/uL (130-400); RBC 4.55 10x6/uL (4.00-5.40); RDW 18.2 % (11.5-14.5); WBC 6.8 10x3/uL (4.8-10.8)
--- NOTE | 2018-09-10 10:26 | NUR ---
PT SEEN AND ASSESSED EARILER THIS SHIFT. HAS BEEN TURNED TO LEFT SIDE. NO INCONT AT THIS TIME. FALL PRECAUTIONS IN PLACE. AT BEDSIDE. CALL LIGHT IN REACH
[2018-09-10 13:03] VITALS: Ht 162.6 cm; Wt 69.9 kg
[2018-09-10 13:28] VITALS: BP 151/62
[2018-09-10 17:04] VITALS: BP 112/76
[2018-09-10 21:56] VITALS: BP 147/57
[2018-09-11 01:32] VITALS: BP 125/86
--- NOTE | 2018-09-11 02:12 | NUR ---
REC'D IN BED EYES CLOSED RESP DEEP AND EVEN FALL PRECAUTIONS IN PLACE. AT BEDSIDE.WILL CONTINUE TO MONITOR FOR ANY CHGES. AND FOLLOW CURRENT PLAN OF CARE.
--- NOTE | 2018-09-11 03:13 | NUR ---
I have reviewed this patient and I concur with the Shift Assessment completed by the Licensed Practical Nurse today this shift.
[2018-09-11 04:39] LABS: BASOPHILS 0.3 % (0-2); EOSINOPHILS 1.8 % (0-7); HEMATOCRIT 31.8 % (36.0-48.0); HEMOGLOBIN 9.7 g/dL (12-16); IMMATURE GRANULOCYTES 0.1 % (0-5); LYMPHOCYTES 22.6 % (15-50); MCH 22.2 pg (26.0-34.0); MCHC 30.5 g/dL (31.0-37.0); MCV 72.8 fL (80.0-100.0); MEAN PLATELET VOLUME 8.8 fL (7.4-10.4); MONOCYTES 6.4 % (2-11); NEUTROPHILS 68.8 % (40-80); PLATELET COUNT 275 10x3/uL (130-400); RBC 4.37 10x6/uL (4.00-5.40); RDW 18.5 % (11.5-14.5); WBC 7.4 10x3/uL (4.8-10.8)
[2018-09-11 05:07] LABS: ANION GAP 9.3 mmol/L (8-16); CALCIUM 8.2 mg/dL (8.5-10.1); CARBON DIOXIDE 25.9 mmol/L (21.0-32.0); MAGNESIUM - SERUM 1.9 mg/dL (1.8-2.4); PHOSPHOROUS 2.6 mg/dL (2.5-4.9); POTASSIUM - SERUM 3.2 mmol/L (3.5-5.1)
[2018-09-11 05:23] VITALS: BP 141/61
[2018-09-11 08:44] VITALS: BP 138/48
--- NOTE | 2018-09-11 11:43 | NUR ---
PT HAS BEEN INCONT X 1. CLEANED AND REPOSITONED. CALL LIGHT IN REACH
--- NOTE | 2018-09-11 13:03 | MORECARE ---
CASE MANAGEMENT DISCHARGE SUMMARY PATIENT: GAB ALEXANDRE UNIT: [id number] ADM DATE: 09/09/18 AGE: 83 : 37 SEX: F ROOM/BED: D.2204 AUTHOR: MUMTAZ HURST PHYSICIAN: REFERRING PHYSICIAN: MARIE HEBERT DO DATE OF SERVICE: 09/11/18 Discharge Plan Patient Name: GAB ALEXANDRE [facility] [facility] 1935 Planned Disposition: Anticipated Discharge Date: Discharge Date: Expected LOS: Initial Reviewer: [email or web address] Initial Review Date: 09/09/2018 Generated: 09/11/18 2:02 pm Comments DCP- Discharge Planning Updated by [email or web address]: Kavita Noriega on 09/11/18 12:[address] Attempted to do DC planning, patient cannot talk due to a CVA. There is nobody at her bedside. I attempted to call her but there was not an answer. I will try again at a later time. Patient Name: GAB ALEXANDRE Page [phone] at 1303 All edits/amendments must be made on the electronic document DICTATION DATE: 09/11/18 130 FISH GRADER: SHEILA 09/11/18 1302 RPT#: [id number] DC DATE: STATUS: ADM IN [facility] [address] [place] [address] END OF REPORT
[2018-09-11 13:31] VITALS: BP 120/42
[2018-09-11 17:21] VITALS: BP 134/48
--- NOTE | 2018-09-11 17:21 | MORECARE ---
CASE MANAGEMENT DISCHARGE SUMMARY PATIENT: GAB ALEXANDRE UNIT: [id number] ADM DATE: 09/09/18 AGE: 83 : 37 SEX: F ROOM/BED: D.2204 AUTHOR: ARIS,DOC PHYSICIAN: REFERRING PHYSICIAN: MARIE HEBERT DO DATE OF SERVICE: 09/11/18 Discharge Plan Patient Name: GAB ALEXANDRE Facility: [facility]:[place] : 1935 Planned Disposition: Home Anticipated Discharge Date: Discharge Date: Expected LOS: Initial Reviewer: [email or web address] Initial Review Date: 09/11/2018 Generated: 09/11/18 6:21 pm Comments DCP- Discharge Planning Updated by [email or web address]: Evelin Pendleton on 09/11/18 4:[address] Patient Name: GAB ALEXANDRE Admission Status: Elective Accout number: [id number] Admission Date: 09-09-2018 : 1935 Admission Diagnosis: Attending: MARIE HEBERT Current LOS: 2 Anticipated DC Date: Planned Disposition: Home Primary Insurance: MEDICARE A & B Discharge Planning Comments: CM MET WITH PATIENT AND HER SUZAN. HE STATES HE HAS TAKEN CARE OF HER FOR THE LAST 7 YEARS AFTER HER STROKE. STATES HE DOES NOT WANT HH OR REHAB, IF IT GETS TO THE POINT WHERE HE NEEDS HELP WITH HER HE WILL LET HER DOCTOR KNOW. SHE DOES HAVE A WHEEL CHAIR AND 02 AT HOME. CM TO FOLLOW AND ASSIST NEEDED. ALSO, HE WOULD LIKE TO SPEAK TO THE DOCTOR ABOUT HER CONDITION WHEN AVAILABLE. Sales Representative Uniforms: Evelin Pendleton DCP- Discharge Planning Updated by [email or web address]: Kavita Noriega on 09/11/18 12:[address] Attempted to do DC planning, patient cannot talk due to a CVA. There is nobody at her bedside. I attempted to call her but there was not an answer. I will try again at a later time. DCPIA - Discharge Planning Initial Assessment Updated by [email or web address]: Evelin Pendleton on 09/11/18 5:16 pm * PCP ANUP * Pharmacy [facility] * Preadmission Environment Home with Family * ADLs Partial Dependent * Partial ADLs (Assistance needed) Ambulation Bathing Dressing Eating Medication Management Toileting Transfers * Equipment Oxygen Wheelchair * List name and contact numbers for known caregivers / representatives who currently or will assist patient after discharge: KOSTA MARES, * Additional services required to return to the preadmission environment? No * Can the patient safely return to the preadmission environment? Yes * Has this patient been hospitalized within the prior 30 days at any hospital? No Last DP export: 09/11/18 12:03 p Patient Name: GAB ALEXANDRE Page [phone] at 1721 All edits/amendments must be made on the electronic document DICTATION DATE: 09/11/181720 EDUCATION FINANCE PROCESSOR: SHEILA 09/11/181720 RPT#: [id number] DC DATE: STATUS: ADM IN [facility] [address] [place] [address] END OF REPORT
--- NOTE | 2018-09-11 19:30 | NUR ---
LYING IN BED. ALERT. NONVERBAL. RT SIDED WEAKNESS NOTED WITH CONTRACTURES TO RT HAND. RESP EVEN AND NONLABORED. HOB ELEVATED 30 DEGREES. SPOUSE AT BEDSIDE. TELEMETRY SHOWS SB WITH RATE OF 57. INCONT OF B/B AT TIMES. NO EDEMA NOTED. NS @ 75 ML/HR INFUSING IN RT FOREARM WITHOUT DIFF. REFUSES TO WEAR SCDS. NODS HEAD TO YES/NO QUESTIONS. CAMMY ALARM IN USE FOR PT SAFETY. SR ELEVATED X2. CL IN REACH.
[2018-09-11 21:25] VITALS: BP 136/49
--- NOTE | 2018-09-12 02:01 | NUR ---
HAS BEEN AWAKE ALL NIGHT UNTIL NOW. LYING IN BED WITH EYES CLOSED. RESP EVEN AND NONLABORED. SPOUSE AT BEDSIDE. CAMMY ALARM ON. CL IN REACH.
[2018-09-12 02:22] VITALS: BP 150/53
[2018-09-12 05:55] VITALS: BP 131/50
[2018-09-12 06:29] LABS: ANION GAP 10.9 mmol/L (8-16); CALCIUM 8.2 mg/dL (8.5-10.1); CARBON DIOXIDE 26.4 mmol/L (21.0-32.0); CREATININE - SERUM 0.8 mg/dL (0.6-1.3); MAGNESIUM - SERUM 1.8 mg/dL (1.8-2.4)
[2018-09-12 06:30] LABS: POTASSIUM - SERUM 3.3 mmol/L (3.5-5.1)
[2018-09-12 06:31] LABS: BASOPHILS 0.2 % (0-2); EOSINOPHILS 2.2 % (0-7); HEMATOCRIT 28.3 % (36.0-48.0); HEMOGLOBIN 8.6 g/dL (12-16); IMMATURE GRANULOCYTES 0.2 % (0-5); LYMPHOCYTES 36.3 % (15-50); MCH 22.1 pg (26.0-34.0); MCHC 30.4 g/dL (31.0-37.0); MCV 72.6 fL (80.0-100.0); MEAN PLATELET VOLUME 9.1 fL (7.4-10.4); MONOCYTES 9.6 % (2-11); NEUTROPHILS 51.5 % (40-80); PLATELET COUNT 269 10x3/uL (130-400); RDW 18.7 % (11.5-14.5)
[2018-09-12 06:36] LABS: WBC 5.4 10x3/uL (4.8-10.8)
--- NOTE | 2018-09-12 07:29 | NUR ---
PT LAYING ON RIGHT SIDE AT PRESENT. STATES NO WHEN ASKED IF IN PAIN. PLACED ON BEDPAN AND VOIDS FREELY. FALL PRECAUITIONS IN PLACE AND ACTIVE. SPOUSE AT BEDSIDE. CALL LIGHT IN REACH
[2018-09-12 09:41] VITALS: BP 151/56
[2018-09-12 13:51] VITALS: BP 103/45; BP 119/44
--- NOTE | 2018-09-12 15:55 | NUR ---
Nutrition Follow Up: Pt remained nonverbal during visit; spoke with pt's . stated that pt is eating good and he does not want to do Ensure/Boost at this time. Diet: FAIRHA PO Intake: 58% meal avg No BM since admit Meds and labs reviewed Rec consider liberalizing diet to encourage po intake. RD following.
--- NOTE | 2018-09-12 15:59 | MORECARE ---
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 HE DENIES ANY NEEDS AT THIS TIME DCP- Discharge Planning Updated by [id number]: Evelin Pendleton on 09/11/18 4:[address] Patient Name: GAB ALEXANDRE Admission Status: Elective Accout number: [id number] Admission Date: 09-09-2018 : 1935 Admission Diagnosis: Attending: MARIE HEBERT Current LOS: 2 Anticipated DC Date: Planned Disposition: Home Primary Insurance: MEDICARE A & B Discharge Planning Comments: CM MET WITH PATIENT AND HER SUZAN. HE STATES HE HAS TAKEN CARE OF HER FOR THE LAST 7 YEARS AFTER HER STROKE. STATES HE DOES NOT WANT HH OR REHAB, IF IT GETS TO THE POINT WHERE HE NEEDS HELP WITH HER HE WILL LET HER DOCTOR KNOW. SHE DOES HAVE A WHEEL CHAIR AND 02 AT HOME. CM TO FOLLOW AND ASSIST NEEDED. ALSO, HE WOULD LIKE TO SPEAK TO THE DOCTOR ABOUT HER CONDITION WHEN AVAILABLE. Log Rafter: Evelin Pendleton DCP- Discharge Planning Updated by [id number]: Kavita Noriega on 09/11/18 12:[address] Attempted to do DC planning, patient cannot talk due to a CVA. There is nobody at her bedside. I attempted to call her but there was not an answer. I will try again at a later time. DCPIA - Discharge Planning Initial Assessment Updated by [email or web address]: Evelin Pendleton on 09/11/18 5:16 pm * PCP [facility] * Pharmacy [facility] * Preadmission Environment Home with Family * ADLs Partial Dependent * Partial ADLs (Assistance needed) Ambulation Bathing Dressing Eating Medication Management Toileting Transfers * Equipment Oxygen Wheelchair * List name and contact numbers for known caregivers / representatives who currently or will assist patient after discharge: KOSTA MARES, * Additional services required to return to the preadmission environment? No * Can the patient safely return to the preadmission environment? Yes * Has this patient been hospitalized within the prior 30 days at any hospital? No Coverage Notice Reviewer: [id number] Burton Noriega Notice Issued Date-Time: 09/12/2018 14:50 Notice Type: IM Discharge Notice Notice Delivered To: Family Member Relationship to Patient: Spouse Breeding Technician Name: SUZAN Delivery Method: HAND - Hand Delivered Beth Days: Prior Verbal Notification: Recipient Understood Notice: Yes Recipient Signature: Yes Med Rec Note Co-signed by Attending: Coverage Notice Comment: Last DP export: 09/11/18 4:22 p Patient Name: GAB ALEXANDRE Page [phone] at 1559 All edits/amendments must be made on the electronic document DICTATION DATE: 09/12/181558 LEHR TENDER: SHEILA 09/12/181558 RPT#: [id number] DC DATE: STATUS: ADM IN [facility] [address] [place] [address] END OF REPORT
[2018-09-12 17:46] VITALS: BP 150/54
--- NOTE | 2018-09-12 19:25 | NUR ---
LYING IN BED. HOB ELEVATED 30 DEGREES. AT BEDSIDE. NONVERBAL MOST OF THE TIME. APHASIC. RT SIDE FLACCID. BEDRIDDEN. RESP EVEN AND NONLABORED. REFUSES TO WEAR SCDS. INCONT OF URINE AT TIMES, OTHERWISE USES BEDPAN. NS @ 75 ML/HR INFUSING IN RT FOREARM WITHOUT DIFF. CAMMY ALARM ON FOR PT SAFETY. NO DISTRESS. SR ELEVATED X2. CL IN REACH.
[2018-09-12 21:13] VITALS: BP 149/51
--- NOTE | 2018-09-12 22:00 | NUR ---
PULLED IV OUT. IV RESTARTED IN RT FOREARM AFTER ATTEMPT X4. PT ZUNILDA WELL.
[2018-09-13 00:29] VITALS: BP 146/50
--- NOTE | 2018-09-13 01:36 | NUR ---
BED BATH, HAIR WASHED AND COMPLETE LINEN CHANGE AT THIS TIME PER CONFERENCE DIRECTOR. CAMMY ALARM ON. CL IN REACH.
--- NOTE | 2018-09-13 05:01 | NUR ---
HAS BEEN AWAKE MOST OF THE NIGHT. USES BEDPAN TO VOID FREQUENTLY. AT BEDSIDE. CAMMY ALARM IN USE. CL IN REACH.
[2018-09-13 05:28] VITALS: BP 158/47
[2018-09-13 06:56] LABS: BASOPHILS 0.3 % (0-2); EOSINOPHILS 2.7 % (0-7); HEMOGLOBIN 8.9 g/dL (12-16); IMMATURE GRANULOCYTES 0.3 % (0-5); LYMPHOCYTES 33.1 % (15-50); MCH 22.4 pg (26.0-34.0); MCHC 30.7 g/dL (31.0-37.0); MEAN PLATELET VOLUME 9.3 fL (7.4-10.4); MONOCYTES 9.3 % (2-11); NEUTROPHILS 54.3 % (40-80); PLATELET COUNT 267 10x3/uL (130-400); RBC 3.97 10x6/uL (4.00-5.40); RDW 18.6 % (11.5-14.5); WBC 6.6 10x3/uL (4.8-10.8)
--- NOTE | 2018-09-13 07:15 | NUR ---
REC'D IN BED AWAKE AND ALERT. RESP EVEN AND UNLABORED WITH NO DISTRESS NOTED CAN EXPRESS NEEDS AND WANTS. NO C/O NOTED OR VOICED. PT IS NON-VERBAL ONLY ANSWERING WITH YES AND NO RESPONSE BY SHAKING HER HEAD. ASSESSMENT COMPLETED. C/L IN REACH AT BEDSIDE.
[2018-09-13 07:21] LABS: ANION GAP 12.1 mmol/L (8-16); CALCIUM 8.2 mg/dL (8.5-10.1); CARBON DIOXIDE 25.3 mmol/L (21.0-32.0); CREATININE - SERUM 0.9 mg/dL (0.6-1.3); MAGNESIUM - SERUM 1.5 mg/dL (1.8-2.4); PHOSPHOROUS 3.1 mg/dL (2.5-4.9); POTASSIUM - SERUM 3.4 mmol/L (3.5-5.1)
--- NOTE | 2018-09-13 09:11 | MORECARE ---
CASE MANAGEMENT DISCHARGE SUMMARY PATIENT: GAB ALEXANDRE UNIT: [id number] ADM DATE: 09/09/18 AGE: 83 : 37 SEX: F ROOM/BED: D.2204 AUTHOR: ARISDOC PHYSICIAN: REFERRING PHYSICIAN: MARIE HEBERT DO DATE OF SERVICE: 09/13/18 Discharge Plan Patient Name: GAB ALEXANDRE Facility: [facility]:[place] : 1935 Planned Disposition: Home Anticipated Discharge Date: Discharge Date: Expected LOS: Initial Reviewer: [id number] Initial Review Date: 09/11/2018 Generated: 09/13/18 10:11 am Comments DCP- Discharge Planning Updated by [id number]: Kavita Noriega on 09/13/18 8:[address] Patient Name: GAB ALEXANDRE Encounter No: [id number] : 1935 Primary Insurance: MEDICARE A & B Anticipated DC Date: Planned Disposition: Home External Planned Provider: : DCP follow-up note: Patient and family in agreement with discharge plan. No changes to plan. Case management will follow and assist as needed. 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 HE DENIES ANY NEEDS AT THIS TIME DCP- Discharge Planning Updated by [id number]: Evelin Pendleton on 09/11/18 4:[address] Patient Name: GAB ALEXANDRE Admission Status: Elective Accout number: [id number] Admission Date: 09-09-2018 : 1935 Admission Diagnosis: Attending: MARIE HEBERT Current LOS: 2 Anticipated DC Date: Planned Disposition: Home Primary Insurance: MEDICARE A & B Discharge Planning Comments: CM MET WITH PATIENT AND HER SUZAN. HE STATES HE HAS TAKEN CARE OF HER FOR THE LAST 7 YEARS AFTER HER STROKE. STATES HE DOES NOT WANT HH OR REHAB, IF IT GETS TO THE POINT WHERE HE NEEDS HELP WITH HER HE WILL LET HER DOCTOR KNOW. SHE DOES HAVE A WHEEL CHAIR AND 02 AT HOME. CM TO FOLLOW AND ASSIST NEEDED. ALSO, HE WOULD LIKE TO SPEAK TO THE DOCTOR ABOUT HER CONDITION WHEN AVAILABLE. It Service Delivery Manager: Evelin Pendleton DCP- Discharge Planning Updated by [id number]: Kavita Noriega on 09/11/18 12:[address] Attempted to do DC planning, patient cannot talk due to a CVA. There is nobody at her bedside. I attempted to call her but there was not an answer. I will try again at a later time. DCPIA - Discharge Planning Initial Assessment Updated by [id number]: Evelin Pendleton on 09/11/18 5:16 pm * PCP [facility] * Pharmacy [facility] * Preadmission Environment Home with Family * ADLs Partial Dependent * Partial ADLs (Assistance needed) Ambulation Bathing Dressing Eating Medication Management Toileting Transfers * Equipment Oxygen Wheelchair * List name and contact numbers for known caregivers / representatives who currently or will assist patient after discharge: SUZAN , * Additional services required to return to the preadmission environment? No * Can the patient safely return to the preadmission environment? Yes * Has this patient been hospitalized within the prior 30 days at any hospital? No Coverage Notice Reviewer: [id number] - Kavita Noriega Notice Issued Date-Time: 09/12/2018 14:50 Notice Type: IM Discharge Notice Notice Delivered To: Family Member Relationship to Patient: Spouse Orthotic Assistant Name: SUZAN Delivery Method: HAND - Hand Delivered Beth Days: Prior Verbal Notification: Recipient Understood Notice: Yes Recipient Signature: Yes Med Rec Note Co-signed by Attending: Coverage Notice Comment: Last DP export: 09/12/18 2:59 p Patient Name: GAB ALEXANDRE Page [phone] at 0911 All edits/amendments must be made on the electronic document DICTATION DATE: 09/13/18910 AIRBORNE OPER[employer] SUPERINTENDENT: SHEILA 09/13/18910 RPT#: [id number] DC DATE: STATUS: ADM IN [facility] [address] [place] [address] END OF REPORT
[2018-09-13 10:43] VITALS: BP 165/59
--- NOTE | 2018-09-13 11:13 | NUR ---
PT DC HOME AT THIS TIME WITH AT BEDSIDE. DC SUMMARY DISCUSSED WITH AT THIS TIME VOICE UNDERSTANDING OF DC ORDERS. IV DC. C/L IN REACH AT BEDSIDE.
--- NOTE | 2018-09-16 08:59 | MORECARE ---
CASE MANAGEMENT DISCHARGE SUMMARY PATIENT: GAB ALEXANDRE UNIT: [id number] ADM DATE: 09/09/18 AGE: 83 : 37 SEX: F ROOM/BED: D.2204 AUTHOR: ARISDOC PHYSICIAN: REFERRING PHYSICIAN: MARIE HEBERT DO DATE OF SERVICE: 09/16/18 Discharge Plan Patient Name: GAB ALEXANDRE Facility: [facility]:[place] : 1935 Planned Disposition: Home Anticipated Discharge Date: Discharge Date: 09/13/2018 Expected LOS: 0 Initial Reviewer: [email or web address] Initial Review Date: 09/11/2018 Generated: 09/16/18 9:58 am Comments DCP- Discharge Planning Updated by [email or web address]: Kavita Noriega on 09/13/18 8:[address] Patient Name: GAB ALEXANDRE Encounter No: [id number] : 1935 Primary Insurance: MEDICARE A & B Anticipated DC Date: Planned Disposition: Home External Planned Provider: : DCP follow-up note: Patient and family in agreement with discharge plan. No changes to plan. Case management will follow and assist as needed. 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 HE DENIES ANY NEEDS AT THIS TIME DCP- Discharge Planning Updated by [id number]: Eevlin Pendleton on 09/11/18 4:[address] Patient Name: GAB ALEXANDRE Admission Status: Elective Accout number: [id number] Admission Date: 09-09-2018 : 1935 Admission Diagnosis: Attending: MARIE HEBERT Current LOS: 2 Anticipated DC Date: Planned Disposition: Home Primary Insurance: MEDICARE A & B Discharge Planning Comments: CM MET WITH PATIENT AND HER SUZAN. HE STATES HE HAS TAKEN CARE OF HER FOR THE LAST 7 YEARS AFTER HER STROKE. STATES HE DOES NOT WANT HH OR REHAB, IF IT GETS TO THE POINT WHERE HE NEEDS HELP WITH HER HE WILL LET HER DOCTOR KNOW. SHE DOES HAVE A WHEEL CHAIR AND 02 AT HOME. CM TO FOLLOW AND ASSIST NEEDED. ALSO, HE WOULD LIKE TO SPEAK TO THE DOCTOR ABOUT HER CONDITION WHEN AVAILABLE. 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 There is nobody at her bedside. I attempted to call her but there was not an answer. I will try again at a later time. DCPIA - Discharge Planning Initial Assessment Updated by [id number]: Evelin Pendleton on 09/11/18 5:16 pm * PCP [facility] * [facility] * Preadmission Environment Home with Family * ADLs Partial Dependent * Partial ADLs (Assistance needed) Ambulation Bathing Dressing Eating Medication Management Toileting Transfers * Equipment Oxygen Wheelchair * List name and contact numbers for known caregivers / representatives who currently or will assist patient after discharge: KOSTA MARES, * Additional services required to return to the preadmission environment? No * Can the patient safely return to the preadmission environment? Yes * Has this patient been hospitalized within the prior 30 days at any hospital? No Coverage Notice Reviewer: [id number] - Kavita Noriega Notice Issued Date-Time: 09/12/2018 14:50 Notice Type: IM Discharge Notice Notice Delivered To: Family Member Relationship to Patient: Spouse Ash Worker Name: SUZAN Delivery Method: HAND - Hand Delivered Beth Days: Prior Verbal Notification: Recipient Understood Notice: Yes Recipient Signature: Yes Med Rec Note Co-signed by Attending: Coverage Notice Comment: Last DP export: 09/13/18 8:11 a Patient Name: AGB ALEXANDRE Page [phone] at 0859 All edits/amendments must be made on the electronic document DICTATION DATE: 09/16/18857 BARREL LAPPER: SHEILA 09/16/1858 RPT#: [id number] DC DATE:09/13/18 STATUS: DIS IN [facility] [address] [place] [address] END OF REPORT
== END 2018-09-13 12:24 | disposition home or self-care (01) | DRG 57 ==
LOC: D.MS 14:39
PROVIDERS: Internal Medicine Nephrology; ADMIT Family Medicine; ATTEND Family Medicine
DX: I69.391 Dysphagia following cerebral infarction (principal); N17.9 Acute kidney failure, unspecified; N39.0 Urinary tract infection, site not specified; R13.10 Dysphagia, unspecified; D64.9 Anemia, unspecified

== ENCOUNTER 2019-12-04 13:32 | Emergency (ER) | payer MEDICARE, OTHER ==
[~2019-12-04] VITALS: Ht 162.6 cm; Wt 59.1 kg
[2019-12-04 13:34] VITALS: Ht 162.6 cm; Wt 59.1 kg
[2019-12-04 14:18] LABS: BASOPHILS 0.2 % (0-2); EOSINOPHILS 0.7 % (0-7); HEMATOCRIT 40.7 % (36.0-48.0); HEMOGLOBIN 12.9 g/dL (12-16); IMMATURE GRANULOCYTES 0.2 % (0-5); LYMPHOCYTES 22.7 % (15-50); MCHC 31.7 g/dL (31.0-37.0); MCV 82.1 fL (80.0-100.0); MEAN PLATELET VOLUME 9.1 fL (7.4-10.4); MONOCYTES 8.1 % (2-11); NEUTROPHILS 68.1 % (40-80); RBC 4.96 10x6/uL (4.00-5.40); WBC 9.1 10x3/uL (4.8-10.8)
[2019-12-04 14:19] LABS: PLATELET COUNT 212 10x3/uL (130-400)
[2019-12-04 14:20] LABS: BILIRUBIN NEGATIVE (NEGATIVE); KETONE NEGATIVE (NEGATIVE); NITRITE NEGATIVE (NEGATIVE); UROBILINOGEN NORMAL mg/dL (< 2)
[2019-12-04 14:26] LABS: CALC OSMOLALITY 274 mosm/kg (275-300); CALCIUM 9.3 mg/dL (8.5-10.1); CHLORIDE - SERUM 101 mmol/L (98-107); CREATININE - SERUM 0.9 mg/dL (0.6-1.3); GLUCOSE 104 mg/dL (74-106); POTASSIUM - SERUM 3.4 mmol/L (3.5-5.1); SODIUM 136 mmol/L (136-145); UREA NITROGEN 20 mg/dL (7-18); eGFR NON AFRICAN AMERICAN 63 mL/min (90-120)
[2019-12-04 14:28] LABS: APTT 40.7 SECONDS (22.8-39.4); INR 2.05 (0.85-1.17); PROTIME 22.9 SECONDS (11.6-15.0)
[2019-12-04 14:41] LABS: ALBUMIN 3.1 g/dL (3.4-5.0); ALKALINE PHOSPHATASE 82 U/L (30-120); ALT (SGPT) 18 U/L (10-68); BILIRUBIN - TOTAL 0.36 mg/dL (0.2-1.3); CKMB 2.4 U/L (0.0-3.6); CREATINE KINASE 148 UL (21-215); PROTEIN - SERUM 7.2 g/dL (6.4-8.2); TROPONIN-I < 0.017 ng/mL (0.000-0.060)
[2019-12-04] MEDS ORDERED: HYDROCODON-ACE1 EAC7 PO (17:01)
[2019-12-04 18:21] VITALS: BP 152/99
== END 2019-12-04 18:21 | disposition home or self-care (01) ==
LOC: D.ER 13:32
PROVIDERS: Family Medicine
DX: S42.401A Unspecified fracture of lower end of right humerus, initial encounter for closed fracture (principal); Z79.01 Long term (current) use of anticoagulants; I48.91 Unspecified atrial fibrillation; I10 Essential (primary) hypertension; Z86.73 Personal history of transient ischemic attack (TIA), and cerebral infarction without residual deficits; W19.XXXA Unspecified fall, initial encounter; Y93.9 Activity, unspecified; Y92.9 Unspecified place or not applicable